=== PATIENT | male | born 1985 | race Caucasian/White ===

== ENCOUNTER 2018-05-18 04:09 | Inpatient (IN) | payer MEDICAID, OTHER ==
[2018-05-18] VITALS (11 sets, daily range): BP systolic 103–127; BP diastolic 59–77
[~2018-05-18] VITALS: Ht 180.3 cm; Wt 70.0 kg
[~2018-05-18 04:09] MED LIST: ATIVAN; CLONIDINE; HEPARIN; KEPPRA; LEVO500T2 PO
[2018-05-18] MEDS ORDERED: ACETAMINOPHEN 650MG SUPP ONE (05:31)
[2018-05-18] MEDS ORDERED: CEFTRIAXONE 1 G PREMIX 50 ML IV ONE (06:30)
[2018-05-18] MEDS ORDERED: AZITHROMYCIN 500 MG in DEXT 5% WATER 250 ML IV ONE (06:30)
[2018-05-18] MEDS ORDERED: SODIUM CHLORIDE 0.9% 1000ML BAG (SEPSIS BOLUS) IV ONE (06:30)
[2018-05-18 08:21] LABS: HEMATOCRIT. 45.5 % (42.0-52.0); HEMOGLOBIN. 15.5 g/dL (14.0-18.0); MEAN CORPUSCULAR HEMOGLOBIN 28.7 pg (28.0-32.0); MEAN CORPUSCULAR VOLUME 84.4 fL (80.0-94.0); PLATELET 235 x1000/uL (130-400); RED BLOOD CELL COUNT 5.39 mill/uL (4.7-6.1); RED CELL DISTRIBUTION WIDTH 13.7 % (11.6-14.6)
[2018-05-18 08:30] LABS: CHLORIDE 100 mEq/L (98-107)
[2018-05-18 08:32] LABS: INR 1.2; PROTHROMBIN TIME 12.3 sec (9.1-11.1)
[2018-05-18 08:33] LABS: CLARITY URINE CLOUDY (CLEAR); COLOR URINE DARK YELLOW (YELLOW); KETONES URINE TRACE (NEGATIVE); LEUKOCYTE ESTERASE URINE 2+ (NEGATIVE); NITRITE URINE POSITIVE (NEGATIVE); OCCULT BLOOD URINE 1+ (NEGATIVE); PH URINE >=9.0 (4.5-8.0); PROTEIN URINE 1+ (NEGATIVE); SPECIFIC GRAVITY URINE 1.023 (1.005-1.030)
[2018-05-18] MEDS ORDERED: ACETAMINOPHEN 650MG/20.3ML UDC GT ONE (09:15)
[2018-05-18 09:21] LABS: PLATELET ESTIMATE NORMAL
[2018-05-18] MEDS ORDERED: DIPHENHYDRAMINE 50MG/ML VIAL IV PRN (10:15)
[2018-05-18] MEDS ORDERED: MAGNESIUM/ALUMINUM HYDROXIDE/SIMETHICONE 30ML UDC PO PRN (10:15)
[2018-05-18] MEDS ORDERED: ACETAMINOPHEN 650MG SUPP PR PRN (10:15)
[2018-05-18] MEDS ORDERED: CLONIDINE 0.1MG TABLET PO PRN (10:15)
[2018-05-18] MEDS ORDERED: NA PHOS,M-B/NA PHOS,DI-BA ENEMA 118ML PR PRN (10:15)
[2018-05-18] MEDS ORDERED: IPRATROPIUM/ALBUTEROL 0.5-3(2.5)MG/3ML NEB INH PRN (10:15)
[2018-05-18] MEDS ORDERED: ONDANSETRON HCL 4MG/2ML INJ IV PRN (10:15)
[2018-05-18] MEDS: DEXT 5%/0.9% NACL 1,000 ML IV SCH ×2 (11:25→20:29)
[2018-05-18] MEDS: ENOXAPARIN 40MG/0.4ML SYR SUBCUT SCH (11:25)
[2018-05-18] MEDS: HYDROCODONE/ACETAMINOPHEN 5/325MG TABLET PO PRN (11:50)
[2018-05-18] MEDS ORDERED: SODIUM CHLORIDE 0.9% 500 ML IV SCH ×2 (12:15)
[2018-05-18] MEDS: PIPERACILLIN/TAZ 3.375G PREMIX 50 ML IV SCH ×2 (12:16→20:29)
[2018-05-18 13:10] LABS: BG BASE EXCESS -3.2 mmol/L (-2.0-2.0); BG DEOXYHEMOGLOBIN 1.5 % (0.0-5.0); BG FRACTION INSPIRED OXYGEN 40; BG HCO3 ACT 20.6 mmol/L (22.0-26.0); BG METHEMOGLOBIN 0.2 % (0.0-1.5); BG OXYGEN SATURATION 98.5 % (92.0-98.5); BG OXYHEMOGLOBIN 97.3 % (94.0-97.0); BG PCO2 33.2 mmHg (35.0-45.0); BG PO2 128.2 mmHg (75.0-100.0); BG SAMPLE SITE RIGHT RADIAL; BG TOTAL HEMOGLOBIN 13.6 g/dL (12.0-18.0); BG VENT MODE NASAL CANNULA
[2018-05-18] MEDS ORDERED: VANCOMYCIN 1,750 MG in DEXT 5% WATER 500 ML IV NR (14:00)
[2018-05-18] MEDS: IPRATROPIUM/ALBUTEROL 0.5-3(2.5)MG/3ML NEB INH SCH ×2 (15:58→20:11)
[2018-05-18] MEDS: ACETAMINOPHEN 325MG TABLET PO PRN (18:33)
[2018-05-18] MEDS: LEVETIRACETAM 500MG/5ML CUP PO SCH (21:00)
[2018-05-18] MEDS: VANCOMYCIN 1500MG in DEXTROSE 5% WATER 250ML IV SCH (21:52)
[2018-05-19] VITALS (15 sets, daily range): BP systolic 98–144; BP diastolic 46–103
[2018-05-19] MEDS: PIPERACILLIN/TAZ 3.375G PREMIX 50 ML IV SCH ×4 (01:21→20:58)
[2018-05-19] MEDS: IPRATROPIUM/ALBUTEROL 0.5-3(2.5)MG/3ML NEB INH SCH ×4 (01:36→20:19)
[2018-05-19] MEDS: ACETAMINOPHEN 325MG TABLET PO PRN ×2 (06:07→11:32)
[2018-05-19] MEDS: VANCOMYCIN 1500MG in DEXTROSE 5% WATER 250ML IV SCH ×3 (06:18→22:39)
[2018-05-19] MEDS: DEXT 5%/0.9% NACL 1,000 ML IV SCH ×2 (06:18→17:00)
[2018-05-19 06:44] LABS: BASOPHILS % 0.4 % (0.0-2.0); HEMATOCRIT. 38.8 % (42.0-52.0); HEMOGLOBIN. 13.3 g/dL (14.0-18.0); MEAN CORPUSCULAR HEMOGLOBIN 29.1 pg (28.0-32.0); MEAN CORPUSCULAR VOLUME 85.2 fL (80.0-94.0); MEAN PLATELET VOLUME 9.7 fl (7.4-10.4); MONOCYTES % 9.4 % (2.0-8.0); NEUTROPHILS % 73.2 % (40.0-76.0); PLATELET 166 x1000/uL (130-400); RED BLOOD CELL COUNT 4.56 mill/uL (4.7-6.1); RED CELL DISTRIBUTION WIDTH 13.6 % (11.6-14.6)
[2018-05-19 06:56] LABS: CHLORIDE 107 mEq/L (98-107)
[2018-05-19 07:07] LABS: HDL CHOLESTEROL 25 mg/dL (40-59)
[2018-05-19 07:08] LABS: LDL CHOLESTEROL 31 mg/dL (5-100)
[2018-05-19 07:10] LABS: T4 FREE 1.25 ng/dL (0.76-1.46)
[2018-05-19] MEDS: LEVETIRACETAM 500MG/5ML CUP PO SCH ×2 (08:55→20:57)
[2018-05-19] MEDS: ENOXAPARIN 40MG/0.4ML SYR SUBCUT SCH (08:55)
[2018-05-19] MEDS: HYDROCODONE/ACETAMINOPHEN 5/325MG TABLET PO PRN (11:11)
[2018-05-19] MEDS: METOPROLOL TARTRATE 25MG TABLET PO SCH ×2 (16:04→20:58)
[2018-05-20] VITALS (13 sets, daily range): BP systolic 119–145; BP diastolic 68–92
[2018-05-20] MEDS: IPRATROPIUM/ALBUTEROL 0.5-3(2.5)MG/3ML NEB INH SCH ×4 (00:50→20:18)
[2018-05-20] MEDS: DEXT 5%/0.9% NACL 1,000 ML IV SCH ×3 (03:00→22:27)
[2018-05-20 04:18] LABS: CHLORIDE 104 mEq/L (98-107)
[2018-05-20 04:26] LABS: VANCOMYCIN TROUGH 19.1 ug/mL (5.0-10.0)
[2018-05-20 04:56] LABS: BASOPHILS % 0.6 % (0.0-2.0); EOSINOPHILS % 0.1 % (0.0-5.0); HEMATOCRIT. 39.2 % (42.0-52.0); HEMOGLOBIN. 13.2 g/dL (14.0-18.0); LYMPHOCYTES % 20.1 % (20.0-50.0); MEAN CORPUSCULAR HEMOGLOBIN 28.5 pg (28.0-32.0); MEAN CORPUSCULAR VOLUME 84.6 fL (80.0-94.0); MEAN PLATELET VOLUME 9.7 fl (7.4-10.4); MONOCYTES % 12.7 % (2.0-8.0); NEUTROPHILS % 66.5 % (40.0-76.0); PLATELET 175 x1000/uL (130-400); RED BLOOD CELL COUNT 4.63 mill/uL (4.7-6.1); RED CELL DISTRIBUTION WIDTH 13.2 % (11.6-14.6)
[2018-05-20] MEDS: PIPERACILLIN/TAZ 3.375G PREMIX 50 ML IV SCH (06:53)
[2018-05-20] MEDS: VANCOMYCIN 1500MG in DEXTROSE 5% WATER 250ML IV SCH (06:54)
[2018-05-20] MEDS: METOPROLOL TARTRATE 25MG TABLET PO SCH ×2 (09:11→20:20)
[2018-05-20] MEDS: LEVETIRACETAM 500MG/5ML CUP PO SCH ×2 (09:11→20:20)
[2018-05-20] MEDS: ENOXAPARIN 40MG/0.4ML SYR SUBCUT SCH (09:12)
[2018-05-20] MEDS ORDERED: POTASSIUM CHLORIDE 20MEQ/PACKET PO SCH (11:00)
[2018-05-20] MEDS ORDERED: [UNRECOGNIZED DRUG - REMARK] XX SCH (13:15)
[2018-05-20] MEDS ORDERED: LEVOFLOXACIN 500MG PREMIX 100 ML IV ONE (13:15)
[2018-05-20] MEDS: LEVOFLOXACIN 750MG PREMIX 150 ML IV SCH (14:06)
[2018-05-20] MEDS ORDERED: VANCOMYCIN 1,750 MG in DEXT 5% WATER 500 ML IV SCH (15:00)
[2018-05-20 21:07] LABS: CLARITY URINE CLOUDY (CLEAR); COLOR URINE YELLOW (YELLOW); KETONES URINE NEGATIVE (NEGATIVE); LEUKOCYTE ESTERASE URINE 2+ (NEGATIVE); NITRITE URINE NEGATIVE (NEGATIVE); OCCULT BLOOD URINE 2+ (NEGATIVE); PH URINE >=9.0 (4.5-8.0); PROTEIN URINE NEGATIVE (NEGATIVE); SPECIFIC GRAVITY URINE 1.009 (1.005-1.030); UROBILINOGEN URINE 0.2 E.U./dL (0.2-1.0)
[2018-05-21] VITALS (12 sets, daily range): BP systolic 99–131; BP diastolic 58–93
[2018-05-21] MEDS: IPRATROPIUM/ALBUTEROL 0.5-3(2.5)MG/3ML NEB INH SCH ×3 (03:03→14:11)
[2018-05-21] MEDS: HYDROCODONE/ACETAMINOPHEN 5/325MG TABLET PO PRN (03:56)
[2018-05-21 07:04] LABS: MEAN CORPUSCULAR HEMOGLOBIN 28.9 pg (28.0-32.0); MEAN CORPUSCULAR VOLUME 84.1 fL (80.0-94.0); PLATELET 187 x1000/uL (130-400); RED BLOOD CELL COUNT 4.16 mill/uL (4.7-6.1); RED CELL DISTRIBUTION WIDTH 13.6 % (11.6-14.6)
[2018-05-21 07:59] LABS: CHLORIDE 108 mEq/L (98-107)
[2018-05-21] MEDS: ENOXAPARIN 40MG/0.4ML SYR SUBCUT SCH (08:48)
[2018-05-21] MEDS: LEVETIRACETAM 500MG/5ML CUP PO SCH (08:48)
[2018-05-21] MEDS: DEXT 5%/0.9% NACL 1,000 ML IV SCH (08:48)
[2018-05-21] MEDS: METOPROLOL TARTRATE 25MG TABLET PO SCH (08:50)
[2018-05-21] MEDS ORDERED: POTASSIUM CHLORIDE 20MEQ/PACKET PO NR (10:30)
[2018-05-21] MEDS ORDERED: POTASSIUM CHLORIDE INJ 40 MEQ in DEXT 5% WATER 250 ML IV NR (12:00)
[2018-05-21 15:19] LABS: BG BASE EXCESS 1.4 mmol/L (-2.0-2.0); BG DEOXYHEMOGLOBIN 3.1 % (0.0-5.0); BG FRACTION INSPIRED OXYGEN 21; BG HCO3 ACT 25.6 mmol/L (22.0-26.0); BG OXYGEN SATURATION 96.9 % (92.0-98.5); BG OXYHEMOGLOBIN 95.9 % (94.0-97.0); BG PCO2 38.7 mmHg (35.0-45.0); BG PH 7.438 (7.350-7.450); BG PO2 89.8 mmHg (75.0-100.0); BG SAMPLE SITE RIGHT BRACHIAL; BG TOTAL HEMOGLOBIN 12.4 g/dL (12.0-18.0); BG VENT MODE ROOM AIR
[2018-05-21] MEDS: LEVOFLOXACIN 750MG PREMIX 150 ML IV SCH (17:27)
== END 2018-05-21 19:00 | disposition home or self-care (01) | DRG 720 ==
LOC: ER 04:09 → EDBEDREQ 06:56 → ENRESERV 09:30 → 5EST 09:55
PROVIDERS: ADMIT Internal Medicine; ATTEND Internal Medicine
DX: A41.59 Other Gram-negative sepsis (principal); J69.0 Pneumonitis due to inhalation of food and vomit; G82.50 Quadriplegia, unspecified; G93.40 Encephalopathy, unspecified; J96.10 Chronic respiratory failure, unspecified whether with hypoxia or hypercapnia; R13.10 Dysphagia, unspecified; D68.59 Other primary thrombophilia; R47.01 Aphasia; E86.0 Dehydration; N39.0 Urinary tract infection, site not specified; E87.6 Hypokalemia; G40.909 Epilepsy, unspecified, not intractable, without status epilepticus; B96.4 Proteus (mirabilis) (morganii) as the cause of diseases classified elsewhere; Z87.820 Personal history of traumatic brain injury; Z93.1 Gastrostomy status; Z98.2 Presence of cerebrospinal fluid drainage device; Z79.899 Other long term (current) drug therapy
CPT/HCPCS: 36415; 36600; 71045; 80048; 80053; 80061; 80202; 81003; 82375; 82542; 82805; 83605; 84132; 84145; 84439; 84443; 85025; 85027; 85610; 87040; 87070; 87077; 87086; 87186; 93005; 93970; 94640; 96365; 96366; 96375; 99285; A6261; J0456; J0696; J1650; J1956; J2543; J3370; J3480; J7030; J7040; J7042; J7060; J7620

== ENCOUNTER 2020-08-21 18:22 | Inpatient (IN) | payer MEDICAID, OTHER ==
[~2020-08-21] VITALS: Ht 170.2 cm; Wt 69.9 kg
[~2020-08-21 18:22] MED LIST changes: -LEVO500T2 PO; +METR500T PO
[2020-08-21 21:52] LABS: BASOPHILS % 0.3 % (0.0-2.0); EOSINOPHILS % 0.1 % (0.0-5.0); HEMATOCRIT. 42.7 % (42.0-52.0); HEMOGLOBIN. 14.1 g/dL (14.0-18.0); LYMPHOCYTES % 11.2 % (20.0-50.0); MEAN CORPUSCULAR HEMOGLOBIN 28.2 pg (28.0-32.0); MEAN CORPUSCULAR VOLUME 85.2 fL (80.0-94.0); MEAN PLATELET VOLUME 10.1 fl (7.4-10.4); MONOCYTES % 11.5 % (2.0-8.0); NEUTROPHILS % 76.9 % (40.0-76.0); PLATELET 223 x1000/uL (130-400); RED BLOOD CELL COUNT 5.01 mill/uL (4.7-6.1); RED CELL DISTRIBUTION WIDTH 13.6 % (11.6-14.6)
[2020-08-21 21:57] LABS: CHLORIDE 100 mEq/L (98-107)
[2020-08-21 22:01] LABS: INR 1.1; PROTHROMBIN TIME 11.4 sec (9.6-11.0)
[2020-08-21 22:31] LABS: CLARITY URINE CLEAR (CLEAR); COLOR URINE DARK YELLOW (YELLOW); KETONES URINE TRACE (NEGATIVE); LEUKOCYTE ESTERASE URINE 2+ (NEGATIVE); NITRITE URINE NEGATIVE (NEGATIVE); OCCULT BLOOD URINE 1+ (NEGATIVE); PROTEIN URINE 2+ (NEGATIVE); SPECIFIC GRAVITY URINE 1.026 (1.005-1.030)
[2020-08-22] MEDS ORDERED: PIPERACILLIN/TAZOBACTAM 3.375GM/50ML PREMIX IV SCH
[2020-08-22] MEDS ORDERED: LACTATED RINGERS 1,000 ML IV SCH ×2 (03:15)
[2020-08-22] MEDS ORDERED: ACETAMINOPHEN 160MG/5ML UDC PO ONE (03:15)
[2020-08-22] MEDS ORDERED: IOHEXOL-350 100 ML BOTTLE ONE (07:18)
[2020-08-22] MEDS ORDERED: HYDROCODONE/ACETAMINOPHEN 5/325MG TABLET PO PRN (12:15)
[2020-08-22] MEDS ORDERED: ACETAMINOPHEN 650MG SUPP PR PRN (12:15)
[2020-08-22] MEDS ORDERED: MEROPENEM 1,000 MG in SODIUM CHLORIDE 0.9% 50 ML IV SCH (13:00)
[2020-08-22] MEDS: MEROPENEM 1,000 MG in SODIUM CHLORIDE 0.9% 100 ML IV SCH (14:01)
[2020-08-22] MEDS ORDERED: SODIUM CHLORIDE 0.9% 1,000 ML IV SCH (16:00)
[2020-08-22] MEDS ORDERED: SODIUM CHLORIDE 0.9% 500 ML IV ONE (16:00)
[2020-08-22] MEDS: DEXT 5%/0.9% NACL 1,000 ML IV SCH (16:15)
[2020-08-22 16:40] LABS: BASOPHILS % 0.5 % (0.0-2.0); EOSINOPHILS % 0.3 % (0.0-5.0); HEMATOCRIT. 37.2 % (42.0-52.0); HEMOGLOBIN. 12.3 g/dL (14.0-18.0); LYMPHOCYTES % 17.5 % (20.0-50.0); MEAN CORPUSCULAR HEMOGLOBIN 28.1 pg (28.0-32.0); MEAN CORPUSCULAR VOLUME 85.1 fL (80.0-94.0); MEAN PLATELET VOLUME 9.1 fl (7.4-10.4); MONOCYTES % 14.9 % (2.0-8.0); NEUTROPHILS % 66.8 % (40.0-76.0); PLATELET 211 x1000/uL (130-400); RED BLOOD CELL COUNT 4.37 mill/uL (4.7-6.1); RED CELL DISTRIBUTION WIDTH 13.1 % (11.6-14.6)
[2020-08-22] MEDS: FAMOTIDINE 20MG/2ML VIAL IV SCH (17:33)
[2020-08-22] MEDS ORDERED: LEVETIRACETAM 1,000 MG in SODIUM CHLORIDE 0.9% 100 ML IV SCH (18:00)
[2020-08-22 18:22] LABS: BG BASE EXCESS 0.6 mmol/L (-2.0-2.0); BG CARBOXYHEMOGLOBIN 0.1 % (0.5-1.5); BG DEOXYHEMOGLOBIN 21.7 % (0.0-5.0); BG FRACTION INSPIRED OXYGEN 75; BG HCO3 ACT 24.8 mmol/L (22.0-26.0); BG METHEMOGLOBIN 0.3 % (0.0-1.5); BG OXYGEN SATURATION 78.2 % (92.0-98.5); BG OXYHEMOGLOBIN 77.9 % (94.0-97.0); BG PCO2 37.9 mmHg (35.0-45.0); BG PEEP (cmH2O) 0 cmH2O; BG PH 7.433 (7.350-7.450); BG PO2 40.3 mmHg (75.0-100.0); BG SAMPLE SITE RIGHT RADIAL; BG TOTAL HEMOGLOBIN 11.5 g/dL (12.0-18.0); BG TOTAL RESPIRATORY RATE 29 b/min; BG VENT MODE VENT - AC
[2020-08-22] MEDS ORDERED: ENOXAPARIN 30MG/0.3ML SYR SUBCUT SCH (18:30)
[2020-08-22] MEDS: LEVETIRACETAM 1000MG PREMIX 100 ML IV SCH (18:32)
[2020-08-22] MEDS: IPRATROPIUM/ALBUTEROL 0.5-3(2.5)MG/3ML NEB HHN SCH (21:47)
[2020-08-23] VITALS (12 sets, daily range): BP systolic 125–159; BP diastolic 79–85
[2020-08-23] MEDS: MEROPENEM 1,000 MG in SODIUM CHLORIDE 0.9% 100 ML IV SCH ×4 (00:32→22:24)
[2020-08-23] MEDS: DEXT 5%/0.9% NACL 1,000 ML IV SCH ×4 (00:33→23:21)
[2020-08-23] MEDS ORDERED: DILTIAZEM HCL 5MG/ML 5ML VIAL IV SCH (02:30)
[2020-08-23 06:44] LABS: CHLORIDE 106 mEq/L (98-107)
[2020-08-23] MEDS: DILTIAZEM HCL 30MG TABLET GT SCH ×3 (06:58→18:00)
[2020-08-23] MEDS ORDERED: VANCOMYCIN 1,500 MG in SODIUM CHLORIDE 0.9% 250 ML IV SCH (07:00)
[2020-08-23 08:25] LABS: BG BASE EXCESS 0.9 mmol/L (-2.0-2.0); BG CARBOXYHEMOGLOBIN 0.3 % (0.5-1.5); BG DEOXYHEMOGLOBIN 0.5 % (0.0-5.0); BG HCO3 ACT 25.3 mmol/L (22.0-26.0); BG METHEMOGLOBIN 0.1 % (0.0-1.5); BG OXYGEN SATURATION 99.5 % (92.0-98.5); BG OXYHEMOGLOBIN 99.1 % (94.0-97.0); BG PCO2 39.7 mmHg (35.0-45.0); BG PH 7.422 (7.350-7.450); BG PO2 316.8 mmHg (75.0-100.0); BG SAMPLE SITE LEFT RADIAL; BG TOTAL HEMOGLOBIN 12.5 g/dL (12.0-18.0); BG VENT MODE VENT - AC
[2020-08-23] MEDS: FAMOTIDINE 20MG/2ML VIAL IV SCH (11:11)
[2020-08-23] MEDS: LEVETIRACETAM 1000MG PREMIX 100 ML IV SCH ×2 (11:11→22:00)
[2020-08-23] MEDS ORDERED: SODIUM BICARBONATE 4% (2.4MEQ) 5ML VIAL IV ONE (13:17)
[2020-08-23] MEDS ORDERED: LIDOCAINE HCL 1% 20ML VIAL (Pyxis) INJ ONE (13:17)
[2020-08-23] MEDS ORDERED: IOHEXOL-300 50 ML BOTTLE IV ONE (13:18)
[2020-08-23] MEDS ORDERED: FENTANYL CITRATE/PF 50MCG/ML 2ML VIAL ONE (13:20)
[2020-08-23] MEDS ORDERED: MIDAZOLAM HCL 2 MG/2 ML VIAL ONE (13:21)
[2020-08-23 15:27] LABS: BASOPHILS % 0.4 % (0.0-2.0); EOSINOPHILS % 0.7 % (0.0-5.0); HEMATOCRIT. 35.8 % (42.0-52.0); HEMOGLOBIN. 11.9 g/dL (14.0-18.0); LYMPHOCYTES % 17.8 % (20.0-50.0); MEAN CORPUSCULAR HEMOGLOBIN 28.3 pg (28.0-32.0); MEAN CORPUSCULAR VOLUME 85.1 fL (80.0-94.0); MEAN PLATELET VOLUME 8.8 fl (7.4-10.4); MONOCYTES % 13.9 % (2.0-8.0); NEUTROPHILS % 67.2 % (40.0-76.0); PLATELET 233 x1000/uL (130-400); RED BLOOD CELL COUNT 4.21 mill/uL (4.7-6.1); RED CELL DISTRIBUTION WIDTH 13.1 % (11.6-14.6)
[2020-08-23] MEDS ORDERED: FENTANYL CITRATE/PF 50MCG/ML 2ML VIAL IV ONE (15:30)
[2020-08-23 16:35] LABS: BG BASE EXCESS 0.7 mmol/L (-2.0-2.0); BG CARBOXYHEMOGLOBIN 0.3 % (0.5-1.5); BG DEOXYHEMOGLOBIN 0.5 % (0.0-5.0); BG FRACTION INSPIRED OXYGEN 75; BG HCO3 ACT 24.4 mmol/L (22.0-26.0); BG METHEMOGLOBIN 0.3 % (0.0-1.5); BG OXYGEN SATURATION 99.5 % (92.0-98.5); BG OXYHEMOGLOBIN 98.9 % (94.0-97.0); BG PCO2 36.2 mmHg (35.0-45.0); BG PH 7.447 (7.350-7.450); BG PO2 384.5 mmHg (75.0-100.0); BG SAMPLE SITE LEFT RADIAL; BG TOTAL HEMOGLOBIN 12.3 g/dL (12.0-18.0); BG TOTAL RESPIRATORY RATE 20 b/min; BG VENT MODE VENT - AC
[2020-08-23] MEDS: IPRATROPIUM/ALBUTEROL 0.5-3(2.5)MG/3ML NEB HHN SCH (20:50)
[2020-08-23] MEDS: ACETAMINOPHEN 325MG TABLET PO PRN (22:25)
[2020-08-24] MEDS: IPRATROPIUM/ALBUTEROL 0.5-3(2.5)MG/3ML NEB HHN SCH ×4 (03:00→20:51)
[2020-08-24] MEDS: ACETAMINOPHEN 325MG TABLET PO PRN (04:57)
[2020-08-24 05:30] LABS: BASOPHILS % 0.5 % (0.0-2.0); EOSINOPHILS % 1.3 % (0.0-5.0); HEMATOCRIT. 34.7 % (42.0-52.0); LYMPHOCYTES % 13.3 % (20.0-50.0); MEAN PLATELET VOLUME 8.9 fl (7.4-10.4); NEUTROPHILS % 75.9 % (40.0-76.0); PLATELET 230 x1000/uL (130-400); RED BLOOD CELL COUNT 4.13 mill/uL (4.7-6.1); RED CELL DISTRIBUTION WIDTH 13.2 % (11.6-14.6)
[2020-08-24 05:36] LABS: CHLORIDE 106 mEq/L (98-107)
[2020-08-24] MEDS: DILTIAZEM HCL 30MG TABLET GT SCH ×4 (06:00→18:00)
[2020-08-24] MEDS: MEROPENEM 1,000 MG in SODIUM CHLORIDE 0.9% 100 ML IV SCH (06:14)
[2020-08-24] MEDS: DEXT 5%/0.9% NACL 1,000 ML IV SCH ×3 (08:15→23:55)
[2020-08-24] MEDS: LEVETIRACETAM 1000MG PREMIX 100 ML IV SCH (09:00)
[2020-08-24] MEDS ORDERED: ENOXAPARIN 40MG/0.4ML SYR SUBCUT SCH (09:00)
[2020-08-24] MEDS: FAMOTIDINE 20MG/2ML VIAL IV SCH (09:00)
[2020-08-24] MEDS ORDERED: SODIUM BICARBONATE 4% (2.4MEQ) 5ML VIAL IV ONE (12:29)
[2020-08-24] MEDS ORDERED: LIDOCAINE HCL 1% 20ML VIAL (Pyxis) INJ ONE (12:29)
[2020-08-24] MEDS ORDERED: MEROPENEM-0.9% SODIUM CHLORIDE 50 ML IV SCH (15:00)
[2020-08-24] MEDS ORDERED: MEROPENEM 1,000 MG in SODIUM CHLORIDE 0.9% 100 ML IV SCH (15:00)
[2020-08-24] MEDS ORDERED: PIPERACILLIN/TAZOBACTAM 3.375 G in DEXT 5% WATER 100 ML IV SCH (16:00)
[2020-08-24] MEDS: AMPICILLIN 1,000 MG in SODIUM CHLORIDE 0.9% 50 ML IV SCH ×2 (16:00→23:55)
[2020-08-24] MEDS ORDERED: GENTAMICIN 120MG PREMIX 100 ML IV SCH (17:00)
[2020-08-24 21:52] LABS: HEMOGLOBIN 11.2 g/dL (14.0-18.0)
[2020-08-25] MEDS: DILTIAZEM HCL 30MG TABLET GT SCH ×4 (00:30→17:52)
[2020-08-25] MEDS: LEVETIRACETAM 1000MG PREMIX 100 ML IV SCH (00:30)
[2020-08-25] MEDS: IPRATROPIUM/ALBUTEROL 0.5-3(2.5)MG/3ML NEB HHN SCH ×4 (03:49→20:37)
[2020-08-25] MEDS: GENTAMICIN 80MG PREMIX 100 ML IV SCH ×2 (04:00→15:00)
[2020-08-25] MEDS: AMPICILLIN 1,000 MG in SODIUM CHLORIDE 0.9% 50 ML IV SCH ×3 (06:20→17:52)
[2020-08-25] MEDS: DEXT 5%/0.9% NACL 1,000 ML IV SCH ×2 (08:15→21:03)
[2020-08-25] MEDS: FAMOTIDINE 20MG/2ML VIAL IV SCH (09:00)
[2020-08-25] MEDS: LEVETIRACETAM 1,000 MG in SODIUM CHLORIDE 0.9% 100 ML IV SCH ×2 (09:00→21:03)
[2020-08-25 15:18] LABS: BASOPHILS % 1.1 % (0.0-2.0); EOSINOPHILS % 3.1 % (0.0-5.0); HEMATOCRIT. 30.9 % (42.0-52.0); HEMOGLOBIN. 10.3 g/dL (14.0-18.0); LYMPHOCYTES % 28.4 % (20.0-50.0); MEAN CORPUSCULAR HEMOGLOBIN 28.2 pg (28.0-32.0); MEAN PLATELET VOLUME 8.4 fl (7.4-10.4); MONOCYTES % 10.2 % (2.0-8.0); NEUTROPHILS % 57.2 % (40.0-76.0); PLATELET 324 x1000/uL (130-400); RED BLOOD CELL COUNT 3.64 mill/uL (4.7-6.1); RED CELL DISTRIBUTION WIDTH 13.2 % (11.6-14.6)
[2020-08-25 15:25] LABS: CHLORIDE 111 mEq/L (98-107)
[2020-08-25] MEDS ORDERED: POTASSIUM CHLORIDE 20MEQ TABLET SR PO NR (16:30)
[2020-08-25] MEDS: ACETAMINOPHEN 325MG TABLET PO PRN (17:53)
[2020-08-26] VITALS (13 sets, daily range): BP systolic 101–160; BP diastolic 56–96
[2020-08-26] MEDS ORDERED: AMPICILLIN 1,000 MG in SODIUM CHLORIDE 0.9% 50 ML IV SCH ×2
[2020-08-26] MEDS ORDERED: GENTAMICIN 80MG PREMIX 100 ML IV SCH (03:00)
[2020-08-26] MEDS: IPRATROPIUM/ALBUTEROL 0.5-3(2.5)MG/3ML NEB HHN SCH ×4 (04:21→21:30)
[2020-08-26] MEDS: DILTIAZEM HCL 30MG TABLET GT SCH ×5 (06:00→17:33)
[2020-08-26 06:17] LABS: HEMATOCRIT 34.2 % (42.0-52.0); HEMOGLOBIN 11.7 g/dL (14.0-18.0); MEAN CORPUSCULAR HEMOGLOBIN 28.9 pg (28.0-32.0); MEAN CORPUSCULAR VOLUME 84.7 fL (80.0-94.0); PLATELET 327 x1000/uL (130-400); RED BLOOD CELL COUNT 4.04 mill/uL (4.7-6.1); RED CELL DISTRIBUTION WIDTH 13.2 % (11.6-14.6)
[2020-08-26] MEDS: FAMOTIDINE 20MG/2ML VIAL IV SCH (08:28)
[2020-08-26] MEDS: GENTAMICIN 80MG PREMIX 100 ML IV SCH ×2 (08:44→21:37)
[2020-08-26] MEDS: DEXT 5%/0.9% NACL 1,000 ML IV SCH ×2 (08:48→21:42)
[2020-08-26 08:55] LABS: CHLORIDE 108 mEq/L (98-107)
[2020-08-26] MEDS ORDERED: POTASSIUM CHLORIDE 20MEQ/PACKET PO NR (11:00)
[2020-08-26 11:14] LABS: BG BASE EXCESS 2.1 mmol/L (-2.0-2.0); BG CARBOXYHEMOGLOBIN 0.1 % (0.5-1.5); BG DEOXYHEMOGLOBIN 0.9 % (0.0-5.0); BG FRACTION INSPIRED OXYGEN 50; BG OXYGEN SATURATION 99.1 % (92.0-98.5); BG PCO2 38.3 mmHg (35.0-45.0); BG PO2 185.1 mmHg (75.0-100.0); BG TOTAL HEMOGLOBIN 12.1 g/dL (12.0-18.0); BG VENT MODE VENT - CPAP
[2020-08-26] MEDS ORDERED: LEVETIRACETAM 1000MG PREMIX 100 ML IV NR (14:00)
[2020-08-26] MEDS ORDERED: LORAZEPAM 2MG/ML CPJ IV NR (14:04)
[2020-08-26] MEDS: LORAZEPAM 2MG/ML CPJ IV PRN (14:05)
[2020-08-26] MEDS: AMPICILLIN 1,000 MG in SODIUM CHLORIDE 0.9% 50 ML IV SCH ×3 (14:30→21:58)
[2020-08-26] MEDS ORDERED: DILTIAZEM HCL 5MG/ML 5ML VIAL IV PRN (14:45)
[2020-08-26] MEDS: MORPHINE SULFATE 2 MG/ML CPJ (NOT FOR IM USE) IV PRN (14:48)
[2020-08-26] MEDS ORDERED: DILTIAZEM HCL 5MG/ML 5ML VIAL IV ONE (15:45)
[2020-08-26] MEDS ORDERED: DILTIAZEM HCL 5MG/ML 5ML VIAL IV SCH (16:00)
[2020-08-26] MEDS ORDERED: POTASSIUM CHLORIDE 20MEQ TABLET SR PO NR (16:45)
[2020-08-26] MEDS: DILTIAZEM HCL 125 MG in DEXT 5% WATER 100 ML IV SCH (17:42)
[2020-08-26] MEDS: ENOXAPARIN 60MG/0.6ML SYR SUBCUT SCH (18:29)
[2020-08-26] MEDS ORDERED: METOPROLOL TARTRATE 25MG TABLET PO SCH (21:00)
[2020-08-26] MEDS ORDERED: LEVETIRACETAM 1000MG PREMIX 100 ML IV SCH (21:00)
[2020-08-26] MEDS: LEVETIRACETAM 1,000 MG in SODIUM CHLORIDE 0.9% 100 ML IV SCH (21:36)
[2020-08-27] VITALS (12 sets, daily range): BP systolic 103–142; BP diastolic 67–94
[2020-08-27] MEDS: LORAZEPAM 2MG/ML CPJ IV PRN (00:57)
[2020-08-27] MEDS: ACETAMINOPHEN 325MG TABLET PO PRN (00:57)
[2020-08-27] MEDS: DILTIAZEM HCL 30MG TABLET GT SCH ×2 (00:57→05:50)
[2020-08-27] MEDS: DILTIAZEM HCL 125 MG in DEXT 5% WATER 100 ML IV SCH ×3 (01:18→18:24)
[2020-08-27] MEDS: AMPICILLIN 1,000 MG in SODIUM CHLORIDE 0.9% 50 ML IV SCH ×4 (01:50→20:46)
[2020-08-27] MEDS: DEXT 5%/0.9% NACL 1,000 ML IV SCH ×3 (04:29→23:32)
[2020-08-27] MEDS: ENOXAPARIN 60MG/0.6ML SYR SUBCUT SCH (05:51)
[2020-08-27 07:20] LABS: BASOPHILS % 0.8 % (0.0-2.0); EOSINOPHILS % 2.9 % (0.0-5.0); HEMATOCRIT. 33.7 % (42.0-52.0); HEMOGLOBIN. 11.3 g/dL (14.0-18.0); LYMPHOCYTES % 32.7 % (20.0-50.0); MEAN CORPUSCULAR HEMOGLOBIN 28.6 pg (28.0-32.0); MEAN CORPUSCULAR VOLUME 85.3 fL (80.0-94.0); MEAN PLATELET VOLUME 8.8 fl (7.4-10.4); MONOCYTES % 10.1 % (2.0-8.0); NEUTROPHILS % 53.5 % (40.0-76.0); PLATELET 372 x1000/uL (130-400); RED BLOOD CELL COUNT 3.95 mill/uL (4.7-6.1); RED CELL DISTRIBUTION WIDTH 13.1 % (11.6-14.6)
[2020-08-27 07:42] LABS: CHLORIDE 108 mEq/L (98-107)
[2020-08-27 08:03] LABS: GENTAMICIN RANDOM 0.8 ug/mL
[2020-08-27] MEDS: IPRATROPIUM/ALBUTEROL 0.5-3(2.5)MG/3ML NEB HHN SCH ×3 (08:04→21:16)
[2020-08-27] MEDS: LEVETIRACETAM 1,000 MG in SODIUM CHLORIDE 0.9% 100 ML IV SCH ×2 (09:31→21:52)
[2020-08-27] MEDS: FAMOTIDINE 20MG/2ML VIAL IV SCH (09:31)
[2020-08-27] MEDS: GENTAMICIN 80MG PREMIX 100 ML IV SCH ×2 (09:31→20:47)
[2020-08-27] MEDS ORDERED: POTASSIUM CHLORIDE INJ 40 MEQ in DEXT 5% WATER 250 ML IV ONE (10:00)
[2020-08-27] MEDS: ENOXAPARIN 80MG/0.8ML SYR SUBCUT SCH (20:48)
[2020-08-27] MEDS: METOPROLOL TARTRATE 25MG TABLET PO SCH (20:54)
[2020-08-28] VITALS (12 sets, daily range): BP systolic 117–165; BP diastolic 61–114
[2020-08-28] MEDS: ONDANSETRON HCL 4MG/2ML INJ IV PRN
[2020-08-28] MEDS: MORPHINE SULFATE 2 MG/ML CPJ (NOT FOR IM USE) IV PRN ×3 (00:01→16:40)
[2020-08-28] MEDS: AMPICILLIN 1,000 MG in SODIUM CHLORIDE 0.9% 50 ML IV SCH ×4 (02:48→20:25)
[2020-08-28] MEDS: IPRATROPIUM/ALBUTEROL 0.5-3(2.5)MG/3ML NEB HHN SCH ×3 (03:16→16:15)
[2020-08-28] MEDS: DILTIAZEM HCL 125 MG in DEXT 5% WATER 100 ML IV SCH ×2 (06:54→20:04)
[2020-08-28] MEDS: LEVETIRACETAM 1,000 MG in SODIUM CHLORIDE 0.9% 100 ML IV SCH ×2 (08:37→23:43)
[2020-08-28] MEDS: GENTAMICIN 80MG PREMIX 100 ML IV SCH ×2 (08:37→20:25)
[2020-08-28] MEDS: FAMOTIDINE 20MG/2ML VIAL IV SCH (08:38)
[2020-08-28] MEDS: ENOXAPARIN 80MG/0.8ML SYR SUBCUT SCH ×2 (08:38→20:49)
[2020-08-28] MEDS: METOPROLOL TARTRATE 25MG TABLET PO SCH ×2 (08:38→08:43)
[2020-08-28] MEDS: DEXT 5%/0.9% NACL 1,000 ML IV SCH ×2 (08:47→23:47)
[2020-08-28] MEDS: METOPROLOL TARTRATE 50MG TABLET PO SCH ×2 (09:00→20:27)
[2020-08-28 09:42] LABS: BASOPHILS % 0.7 % (0.0-2.0); EOSINOPHILS % 3.1 % (0.0-5.0); HEMATOCRIT. 40.6 % (42.0-52.0); HEMOGLOBIN. 13.5 g/dL (14.0-18.0); LYMPHOCYTES % 28.3 % (20.0-50.0); MEAN CORPUSCULAR HEMOGLOBIN 28.4 pg (28.0-32.0); MEAN CORPUSCULAR VOLUME 84.9 fL (80.0-94.0); MEAN PLATELET VOLUME 8.4 fl (7.4-10.4); MONOCYTES % 8.7 % (2.0-8.0); NEUTROPHILS % 59.2 % (40.0-76.0); PLATELET 477 x1000/uL (130-400); RED BLOOD CELL COUNT 4.77 mill/uL (4.7-6.1)
[2020-08-28 09:56] LABS: CHLORIDE 106 mEq/L (98-107)
[2020-08-28] MEDS ORDERED: METOPROLOL TARTRATE 5MG/5ML VIAL IV SCH (12:00)
[2020-08-28] MEDS ORDERED: POTASSIUM CHLORIDE INJ 40 MEQ in DEXT 5% WATER 250 ML IV SCH (13:00)
[2020-08-28] MEDS ORDERED: METOPROLOL TARTRATE 5MG/5ML VIAL IV NR (17:08)
[2020-08-28] MEDS: LORAZEPAM 2MG/ML CPJ IV PRN (20:34)
[2020-08-29] VITALS (17 sets, daily range): BP systolic 86–155; BP diastolic 51–98
[2020-08-29] MEDS: AMPICILLIN 1,000 MG in SODIUM CHLORIDE 0.9% 50 ML IV SCH ×4 (01:57→21:39)
[2020-08-29] MEDS: LORAZEPAM 2MG/ML CPJ IV PRN ×2 (02:15→05:54)
[2020-08-29] MEDS: IPRATROPIUM/ALBUTEROL 0.5-3(2.5)MG/3ML NEB HHN SCH ×4 (02:20→22:05)
[2020-08-29] MEDS: MORPHINE SULFATE 2 MG/ML CPJ (NOT FOR IM USE) IV PRN (04:33)
[2020-08-29] MEDS: ONDANSETRON HCL 4MG/2ML INJ IV PRN (05:51)
[2020-08-29 06:54] LABS: CHLORIDE 107 mEq/L (98-107)
[2020-08-29 07:00] LABS: BASOPHILS % 0.6 % (0.0-2.0); EOSINOPHILS % 1.8 % (0.0-5.0); HEMATOCRIT. 40.3 % (42.0-52.0); HEMOGLOBIN. 13.2 g/dL (14.0-18.0); INR 1.3; LYMPHOCYTES % 34.4 % (20.0-50.0); MEAN CORPUSCULAR HEMOGLOBIN 28.4 pg (28.0-32.0); MEAN CORPUSCULAR VOLUME 86.5 fL (80.0-94.0); MEAN PLATELET VOLUME 8.6 fl (7.4-10.4); MONOCYTES % 8.3 % (2.0-8.0); NEUTROPHILS % 54.9 % (40.0-76.0); PLATELET 722 x1000/uL (130-400); PROTHROMBIN TIME 13.2 sec (9.6-11.0); RED BLOOD CELL COUNT 4.66 mill/uL (4.7-6.1); RED CELL DISTRIBUTION WIDTH 13.5 % (11.6-14.6)
[2020-08-29] MEDS: ENOXAPARIN 80MG/0.8ML SYR SUBCUT SCH (08:25)
[2020-08-29] MEDS: DILTIAZEM HCL 125 MG in DEXT 5% WATER 100 ML IV SCH (08:25)
[2020-08-29] MEDS: METOPROLOL TARTRATE 50MG TABLET PO SCH (08:26)
[2020-08-29] MEDS: FAMOTIDINE 20MG/2ML VIAL IV SCH (08:26)
[2020-08-29] MEDS: LEVETIRACETAM 1,000 MG in SODIUM CHLORIDE 0.9% 100 ML IV SCH ×2 (10:21→21:39)
[2020-08-29] MEDS: GENTAMICIN 80MG PREMIX 100 ML IV SCH ×2 (10:23→23:07)
[2020-08-29] MEDS: DEXT 5%/0.9% NACL 1,000 ML IV SCH (13:45)
[2020-08-29] MEDS: DILTIAZEM HCL 30MG TABLET PO SCH ×2 (14:19→18:00)
[2020-08-29] MEDS ORDERED: HYDROCODONE/ACETAMINOPHEN 5/325MG TABLET PO PRN (15:00)
[2020-08-29] MEDS ORDERED: LACTULOSE 20G/30ML UDC PO PRN (15:00)
[2020-08-29 15:17] LABS: HEMATOCRIT 36.9 % (42.0-52.0); MEAN CORPUSCULAR HEMOGLOBIN 27.9 pg (28.0-32.0); PLATELET 510 x1000/uL (130-400); RED BLOOD CELL COUNT 4.29 mill/uL (4.7-6.1); RED CELL DISTRIBUTION WIDTH 13.2 % (11.6-14.6)
[2020-08-29] MEDS ORDERED: DILTIAZEM HCL 30MG TABLET PO SCH (18:00)
[2020-08-29] MEDS ORDERED: DIGOXIN 500MCG/2ML AMP IV NR (19:57)
[2020-08-29] MEDS: METOPROLOL TARTRATE 100MG TABLET PO SCH (21:00)
[2020-08-30] VITALS (11 sets, daily range): BP systolic 103–140; BP diastolic 46–98
[2020-08-30] MEDS: DILTIAZEM HCL 30MG TABLET PO SCH ×4 (00:17→17:21)
[2020-08-30] MEDS: DEXT 5%/0.9% NACL 1,000 ML IV SCH ×2 (01:21→11:48)
[2020-08-30] MEDS: LORAZEPAM 2MG/ML CPJ IV PRN ×3 (02:57→13:47)
[2020-08-30] MEDS: IPRATROPIUM/ALBUTEROL 0.5-3(2.5)MG/3ML NEB HHN SCH ×3 (03:10→20:40)
[2020-08-30] MEDS: AMPICILLIN 1,000 MG in SODIUM CHLORIDE 0.9% 50 ML IV SCH ×4 (03:29→20:14)
[2020-08-30 07:25] LABS: BASOPHILS % 0.3 % (0.0-2.0); HEMATOCRIT. 30.6 % (42.0-52.0); HEMOGLOBIN. 9.1 g/dL (14.0-18.0); LYMPHOCYTES % 18.7 % (20.0-50.0); MEAN CORPUSCULAR HEMOGLOBIN 28.4 pg (28.0-32.0); MEAN CORPUSCULAR VOLUME 95.2 fL (80.0-94.0); MONOCYTES % 6.8 % (2.0-8.0); NEUTROPHILS % 73.2 % (40.0-76.0); PLATELET 385 x1000/uL (130-400); RED BLOOD CELL COUNT 3.21 mill/uL (4.7-6.1); RED CELL DISTRIBUTION WIDTH 14.5 % (11.6-14.6)
[2020-08-30] MEDS: METOPROLOL TARTRATE 100MG TABLET PO SCH ×2 (09:00→21:19)
[2020-08-30] MEDS: GENTAMICIN 80MG PREMIX 100 ML IV SCH ×2 (09:27→21:00)
[2020-08-30] MEDS: FAMOTIDINE 20MG/2ML VIAL IV SCH (09:27)
[2020-08-30] MEDS: LEVETIRACETAM 1,000 MG in SODIUM CHLORIDE 0.9% 100 ML IV SCH ×2 (10:47→21:01)
[2020-08-30] MEDS ORDERED: DIATR MEGLU/DIATRIZOATE SOLN 30ML GT SCH (11:00)
[2020-08-30] MEDS ORDERED: DILTIAZEM HCL 125 MG in DEXT 5% WATER 100 ML IV PRN ×2 (11:15→12:00)
[2020-08-30] MEDS ORDERED: DIATR MEGLU/DIATRIZOATE SOLN 30ML ONE (11:59)
[2020-08-30 12:12] LABS: CHLORIDE 110 mEq/L (98-107)
[2020-08-30 12:40] LABS: BG BASE EXCESS 5.1 mmol/L (-2.0-2.0); BG CARBOXYHEMOGLOBIN 0.2 % (0.5-1.5); BG DEOXYHEMOGLOBIN 5.9 % (0.0-5.0); BG HCO3 ACT 28.5 mmol/L (22.0-26.0); BG METHEMOGLOBIN 0.3 % (0.0-1.5); BG OXYGEN SATURATION 94.1 % (92.0-98.5); BG OXYHEMOGLOBIN 93.6 % (94.0-97.0); BG PCO2 37.7 mmHg (35.0-45.0); BG PH 7.497 (7.350-7.450); BG PO2 67.3 mmHg (75.0-100.0); BG SAMPLE SITE LEFT RADIAL; BG TOTAL HEMOGLOBIN 11.9 g/dL (12.0-18.0); BG VENT MODE VENT - AC
[2020-08-30 13:23] LABS: HEMATOCRIT 36.3 % (42.0-52.0); HEMOGLOBIN 11.7 g/dL (14.0-18.0)
[2020-08-30] MEDS: CLONIDINE 0.1MG TABLET PO SCH ×2 (13:47→22:00)
[2020-08-30 13:54] LABS: CHLORIDE 112 mEq/L (98-107)
[2020-08-30] MEDS ORDERED: POTASSIUM CHLORIDE INJ 40 MEQ in DEXT 5% WATER 250 ML IV SCH (15:00)
[2020-08-30] MEDS: ACETYLCYSTEINE 100MG/ML 10% VIAL 4ML INH SCH ×2 (15:35→20:40)
[2020-08-30] MEDS: METHYLPREDNISOLONE SOD SUCC 40 MG/ML VIAL IV SCH (17:21)
[2020-08-30] MEDS ORDERED: POTASSIUM CHLORIDE 20MEQ TABLET SR PO SCH (18:00)
[2020-08-30 18:07] LABS: BG BASE EXCESS 5.2 mmol/L (-2.0-2.0); BG CARBOXYHEMOGLOBIN 0.6 % (0.5-1.5); BG DEOXYHEMOGLOBIN 1.5 % (0.0-5.0); BG HCO3 ACT 29.6 mmol/L (22.0-26.0); BG METHEMOGLOBIN 0.1 % (0.0-1.5); BG OXYGEN SATURATION 98.5 % (92.0-98.5); BG OXYHEMOGLOBIN 97.8 % (94.0-97.0); BG PCO2 42.8 mmHg (35.0-45.0); BG PH 7.458 (7.350-7.450); BG PO2 116.8 mmHg (75.0-100.0); BG SAMPLE SITE LEFT RADIAL; BG TOTAL HEMOGLOBIN 12.7 g/dL (12.0-18.0); BG VENT MODE VENT - AC
[2020-08-30] MEDS: CEFEPIME 1,000 MG in DEXTROSE 5% WATER 50 ML IV SCH (18:47)
[2020-08-31] VITALS (12 sets, daily range): BP systolic 104–126; BP diastolic 67–88
[2020-08-31] MEDS: DILTIAZEM HCL 30MG TABLET PO SCH ×3 (03:05→18:25)
[2020-08-31] MEDS: DEXT 5%/0.9% NACL 1,000 ML IV SCH ×3 (03:46→18:21)
[2020-08-31] MEDS: IPRATROPIUM/ALBUTEROL 0.5-3(2.5)MG/3ML NEB HHN SCH ×4 (04:05→20:26)
[2020-08-31] MEDS: METHYLPREDNISOLONE SOD SUCC 40 MG/ML VIAL IV SCH ×2 (04:55→18:20)
[2020-08-31] MEDS: AMPICILLIN 1,000 MG in SODIUM CHLORIDE 0.9% 50 ML IV SCH ×4 (06:05→20:25)
[2020-08-31] MEDS: CEFEPIME 1,000 MG in DEXTROSE 5% WATER 50 ML IV SCH ×2 (06:09→18:21)
[2020-08-31 06:56] LABS: BASOPHILS % 0.1 % (0.0-2.0); HEMATOCRIT. 33.2 % (42.0-52.0); LYMPHOCYTES % 14.3 % (20.0-50.0); MEAN CORPUSCULAR HEMOGLOBIN 28.6 pg (28.0-32.0); MEAN CORPUSCULAR VOLUME 86.2 fL (80.0-94.0); MEAN PLATELET VOLUME 9.6 fl (7.4-10.4); MONOCYTES % 2.1 % (2.0-8.0); NEUTROPHILS % 83.5 % (40.0-76.0); PLATELET 466 x1000/uL (130-400); RED BLOOD CELL COUNT 3.86 mill/uL (4.7-6.1); RED CELL DISTRIBUTION WIDTH 13.4 % (11.6-14.6)
[2020-08-31 07:08] LABS: CHLORIDE 111 mEq/L (98-107)
[2020-08-31 07:28] LABS: GENTAMICIN RANDOM 0.5 ug/mL
[2020-08-31] MEDS: ACETYLCYSTEINE 100MG/ML 10% VIAL 4ML INH SCH ×2 (09:27→14:07)
[2020-08-31] MEDS: LEVETIRACETAM 1,000 MG in SODIUM CHLORIDE 0.9% 100 ML IV SCH ×2 (09:35→22:32)
[2020-08-31] MEDS: FAMOTIDINE 20MG/2ML VIAL IV SCH (09:35)
[2020-08-31] MEDS: METOPROLOL TARTRATE 100MG TABLET PO SCH ×2 (09:36→21:26)
[2020-08-31] MEDS: GENTAMICIN 80MG PREMIX 100 ML IV SCH ×2 (09:36→20:25)
[2020-08-31 10:28] LABS: BG BASE EXCESS 2.3 mmol/L (-2.0-2.0); BG CARBOXYHEMOGLOBIN 0.3 % (0.5-1.5); BG DEOXYHEMOGLOBIN 1.2 % (0.0-5.0); BG FRACTION INSPIRED OXYGEN 90; BG HCO3 ACT 25.9 mmol/L (22.0-26.0); BG OXYGEN SATURATION 98.8 % (92.0-98.5); BG OXYHEMOGLOBIN 98.5 % (94.0-97.0); BG PCO2 36.5 mmHg (35.0-45.0); BG PH 7.469 (7.350-7.450); BG PO2 151.5 mmHg (75.0-100.0); BG SAMPLE SITE LEFT RADIAL; BG TOTAL HEMOGLOBIN 10.9 g/dL (12.0-18.0); BG VENT MODE VENT - AC
[2020-08-31] MEDS: CLONIDINE 0.1MG TABLET PO SCH ×2 (14:40→21:27)
[2020-09-01] VITALS (12 sets, daily range): BP systolic 120–140; BP diastolic 77–95
[2020-09-01] MEDS: DILTIAZEM HCL 30MG TABLET PO SCH ×4 (00:22→17:54)
[2020-09-01] MEDS: AMPICILLIN 1,000 MG in SODIUM CHLORIDE 0.9% 50 ML IV SCH ×4 (01:42→20:06)
[2020-09-01] MEDS: IPRATROPIUM/ALBUTEROL 0.5-3(2.5)MG/3ML NEB HHN SCH ×3 (03:00→21:34)
[2020-09-01] MEDS: ACETYLCYSTEINE 100MG/ML 10% VIAL 4ML INH SCH ×3 (03:00→21:34)
[2020-09-01] MEDS: CLONIDINE 0.1MG TABLET PO SCH ×3 (05:32→23:01)
[2020-09-01] MEDS: METHYLPREDNISOLONE SOD SUCC 40 MG/ML VIAL IV SCH ×2 (05:33→16:28)
[2020-09-01] MEDS: CEFEPIME 1,000 MG in DEXTROSE 5% WATER 50 ML IV SCH ×2 (05:59→17:54)
[2020-09-01] MEDS: DEXT 5%/0.9% NACL 1,000 ML IV SCH ×2 (06:02→23:01)
[2020-09-01 07:45] LABS: HEMATOCRIT 31.6 % (42.0-52.0); HEMOGLOBIN 10.6 g/dL (14.0-18.0); MEAN CORPUSCULAR HEMOGLOBIN 28.5 pg (28.0-32.0); MEAN CORPUSCULAR VOLUME 85.1 fL (80.0-94.0); PLATELET 440 x1000/uL (130-400); RED BLOOD CELL COUNT 3.71 mill/uL (4.7-6.1)
[2020-09-01 07:59] LABS: CHLORIDE 110 mEq/L (98-107)
[2020-09-01] MEDS: FAMOTIDINE 20MG/2ML VIAL IV SCH (08:48)
[2020-09-01] MEDS: METOPROLOL TARTRATE 100MG TABLET PO SCH ×2 (08:49→20:51)
[2020-09-01] MEDS: LEVETIRACETAM 1,000 MG in SODIUM CHLORIDE 0.9% 100 ML IV SCH (08:57)
[2020-09-01] MEDS: GENTAMICIN 80MG PREMIX 100 ML IV SCH ×2 (09:38→20:07)
[2020-09-01 10:45] LABS: BG CARBOXYHEMOGLOBIN 0.3 % (0.5-1.5); BG FRACTION INSPIRED OXYGEN 70; BG HCO3 ACT 21.7 mmol/L (22.0-26.0); BG METHEMOGLOBIN 0.3 % (0.0-1.5); BG OXYHEMOGLOBIN 98.4 % (94.0-97.0); BG PCO2 33.5 mmHg (35.0-45.0); BG PH 7.429 (7.350-7.450); BG PO2 172.7 mmHg (75.0-100.0); BG SAMPLE SITE LEFT RADIAL; BG TOTAL HEMOGLOBIN 11.7 g/dL (12.0-18.0); BG VENT MODE VENT - AC
[2020-09-01] MEDS ORDERED: POTASSIUM CHLORIDE INJ 40 MEQ in DEXT 5% WATER 250 ML IV NR (11:00)
[2020-09-01] MEDS: LEVETIRACETAM 1000MG PREMIX 100 ML IV SCH (22:56)
[2020-09-01] MEDS: DILTIAZEM HCL 60MG TABLET PO SCH (23:16)
[2020-09-02] VITALS (13 sets, daily range): BP systolic 101–141; BP diastolic 57–88
[2020-09-02] MEDS: AMPICILLIN 1,000 MG in SODIUM CHLORIDE 0.9% 50 ML IV SCH ×4 (01:36→20:20)
[2020-09-02] MEDS: LORAZEPAM 2MG/ML CPJ IV PRN ×3 (01:59→12:49)
[2020-09-02] MEDS: IPRATROPIUM/ALBUTEROL 0.5-3(2.5)MG/3ML NEB HHN SCH ×4 (03:36→21:05)
[2020-09-02] MEDS: METHYLPREDNISOLONE SOD SUCC 40 MG/ML VIAL IV SCH ×2 (04:40→17:50)
[2020-09-02] MEDS: DILTIAZEM HCL 60MG TABLET PO SCH ×3 (04:48→18:00)
[2020-09-02] MEDS: CEFEPIME 1,000 MG in DEXTROSE 5% WATER 50 ML IV SCH ×2 (04:54→17:50)
[2020-09-02] MEDS: CLONIDINE 0.1MG TABLET PO SCH ×3 (06:00→23:50)
[2020-09-02 06:45] LABS: BASOPHILS % 0.1 % (0.0-2.0); HEMATOCRIT. 31.3 % (42.0-52.0); HEMOGLOBIN. 10.4 g/dL (14.0-18.0); MEAN CORPUSCULAR HEMOGLOBIN 28.3 pg (28.0-32.0); MEAN PLATELET VOLUME 9.4 fl (7.4-10.4); MONOCYTES % 9.2 % (2.0-8.0); NEUTROPHILS % 78.7 % (40.0-76.0); PLATELET 406 x1000/uL (130-400); RED BLOOD CELL COUNT 3.68 mill/uL (4.7-6.1); RED CELL DISTRIBUTION WIDTH 12.8 % (11.6-14.6)
[2020-09-02 07:22] LABS: CHLORIDE 106 mEq/L (98-107)
[2020-09-02] MEDS: FAMOTIDINE 20MG/2ML VIAL IV SCH (08:13)
[2020-09-02] MEDS ORDERED: POTASSIUM CHLORIDE 20MEQ TABLET SR PO NR (08:14)
[2020-09-02] MEDS: METOPROLOL TARTRATE 100MG TABLET PO SCH ×2 (08:15→21:43)
[2020-09-02] MEDS: GENTAMICIN 80MG PREMIX 100 ML IV SCH ×2 (08:16→20:22)
[2020-09-02] MEDS: LEVETIRACETAM 1000MG PREMIX 100 ML IV SCH ×2 (08:17→20:21)
[2020-09-02] MEDS: DEXT 5%/0.9% NACL 1,000 ML IV SCH ×2 (09:39→10:13)
[2020-09-02 10:01] LABS: BG BASE EXCESS 1.6 mmol/L (-2.0-2.0); BG CARBOXYHEMOGLOBIN 0.3 % (0.5-1.5); BG DEOXYHEMOGLOBIN 0.7 % (0.0-5.0); BG HCO3 ACT 25.4 mmol/L (22.0-26.0); BG METHEMOGLOBIN 0.2 % (0.0-1.5); BG OXYGEN SATURATION 99.3 % (92.0-98.5); BG OXYHEMOGLOBIN 98.8 % (94.0-97.0); BG PCO2 36.6 mmHg (35.0-45.0); BG PH 7.459 (7.350-7.450); BG PO2 245.4 mmHg (75.0-100.0); BG SAMPLE SITE LEFT RADIAL; BG TOTAL HEMOGLOBIN 10.5 g/dL (12.0-18.0); BG VENT MODE VENT - AC
[2020-09-02] MEDS ORDERED: LIDOCAINE HCL 1% 20ML VIAL (Pyxis) INJ ONE (12:53)
[2020-09-02] MEDS ORDERED: SODIUM BICARBONATE 4% (2.4MEQ) 5ML VIAL IV ONE (12:53)
[2020-09-02] MEDS: ACETYLCYSTEINE 100MG/ML 10% VIAL 4ML INH SCH ×2 (14:00→21:05)
[2020-09-03] VITALS (11 sets, daily range): BP systolic 104–131; BP diastolic 58–85
[2020-09-03] MEDS: DILTIAZEM HCL 60MG TABLET PO SCH ×4 (02:57→17:18)
[2020-09-03] MEDS: AMPICILLIN 1,000 MG in SODIUM CHLORIDE 0.9% 50 ML IV SCH ×3 (02:57→13:56)
[2020-09-03] MEDS: IPRATROPIUM/ALBUTEROL 0.5-3(2.5)MG/3ML NEB HHN SCH ×3 (04:58→15:18)
[2020-09-03] MEDS: DEXT 5%/0.9% NACL 1,000 ML IV SCH ×2 (05:39→17:40)
[2020-09-03] MEDS: CEFEPIME 1,000 MG in DEXTROSE 5% WATER 50 ML IV SCH ×2 (05:49→17:18)
[2020-09-03] MEDS: CLONIDINE 0.1MG TABLET PO SCH ×2 (05:49→13:55)
[2020-09-03] MEDS: METHYLPREDNISOLONE SOD SUCC 40 MG/ML VIAL IV SCH (05:49)
[2020-09-03] MEDS: METOPROLOL TARTRATE 100MG TABLET PO SCH (08:11)
[2020-09-03] MEDS: FAMOTIDINE 20MG/2ML VIAL IV SCH (08:11)
[2020-09-03] MEDS: ACETYLCYSTEINE 100MG/ML 10% VIAL 4ML INH SCH ×2 (08:14→15:18)
[2020-09-03 08:27] LABS: HEMATOCRIT. 33.8 % (42.0-52.0); HEMOGLOBIN. 10.9 g/dL (14.0-18.0); MEAN CORPUSCULAR HEMOGLOBIN 27.7 pg (28.0-32.0); MEAN CORPUSCULAR VOLUME 85.7 fL (80.0-94.0); MEAN PLATELET VOLUME 10.1 fl (7.4-10.4); PLATELET 425 x1000/uL (130-400); RED BLOOD CELL COUNT 3.94 mill/uL (4.7-6.1); RED CELL DISTRIBUTION WIDTH 13.3 % (11.6-14.6)
[2020-09-03] MEDS: GENTAMICIN 80MG PREMIX 100 ML IV SCH (08:41)
[2020-09-03] MEDS: LEVETIRACETAM 1000MG PREMIX 100 ML IV SCH (08:51)
[2020-09-03 09:32] LABS: CHLORIDE 106 mEq/L (98-107)
[2020-09-03] MEDS ORDERED: POTASSIUM CHLORIDE 20MEQ/PACKET PO NR (10:30)
[2020-09-03 12:36] LABS: BG BASE EXCESS -0.6 mmol/L (-2.0-2.0); BG FRACTION INSPIRED OXYGEN 40; BG HCO3 ACT 23.3 mmol/L (22.0-26.0); BG METHEMOGLOBIN 0.1 % (0.0-1.5); BG OXYHEMOGLOBIN 96.9 % (94.0-97.0); BG PCO2 35.9 mmHg (35.0-45.0); BG PO2 102.2 mmHg (75.0-100.0); BG SAMPLE SITE RIGHT RADIAL; BG TOTAL HEMOGLOBIN 13.4 g/dL (12.0-18.0); BG VENT MODE VENT - AC
[2020-09-03 16:25] LABS: PLATELET ESTIMATE INCREASED
[2020-09-03] MEDS ORDERED: SULFAMETHOXAZOLE/TRIMETHOPRIM 800/160MG TABLET PO SCH (21:00)
[2020-09-04] MEDS ORDERED: METHYLPREDNISOLONE SOD SUCC 40 MG/ML VIAL IV SCH (09:00)
== END 2020-09-03 21:03 | DRG 720 ==
LOC: ER 18:32 → MICUSO 08-22 00:23 → EDBEDREQTM 08-22 00:37 → EDBEDREQ 08-22 00:37 → EDBEDREQSVC 08-22 00:37 → EDBEDREQDT 08-22 00:37 → 7EST 08-23 08:52 → MICUSO 08-23 10:08 → EDBEDREQSVC 08-23 18:18 → 5EST 08-24 23:30 → MICUSO 08-25 08:21 → 5EST 08-25 21:28
PROVIDERS: ADMIT Internal Medicine; ATTEND Internal Medicine
PROC: 5A1955Z Respiratory Ventilation, Greater than 96 Consecutive Hours (ICD-10-PCS; principal; 2020-08-22)
PROC: 0T9430Z Drainage of Left Kidney Pelvis with Drainage Device, Percutaneous Approach (ICD-10-PCS; 2020-08-23)
PROC: 0D20XUZ Change Feeding Device in Upper Intestinal Tract, External Approach (ICD-10-PCS; 2020-08-30)
PROC: 05HY33Z Insertion of Infusion Device into Upper Vein, Percutaneous Approach (ICD-10-PCS; 2020-09-02)
PROC: B54MZZA Ultrasonography of Right Upper Extremity Veins, Guidance (ICD-10-PCS; 2020-09-02)
DX: A41.81 Sepsis due to Enterococcus (principal); R65.21 Severe sepsis with septic shock; G93.40 Encephalopathy, unspecified; N20.2 Calculus of kidney with calculus of ureter; D68.59 Other primary thrombophilia; D72.810 Lymphocytopenia; E86.0 Dehydration; E87.1 Hypo-osmolality and hyponatremia; G40.909 Epilepsy, unspecified, not intractable, without status epilepticus; K56.41 Fecal impaction; N13.6 Pyonephrosis; E46 Unspecified protein-calorie malnutrition; R74.01 Elevation of levels of liver transaminase levels; Z20.822 Contact with and (suspected) exposure to COVID-19; G91.9 Hydrocephalus, unspecified; G82.50 Quadriplegia, unspecified; E87.6 Hypokalemia; I48.92 Unspecified atrial flutter; K94.23 Gastrostomy malfunction; Y83.8 Other surgical procedures as the cause of abnormal reaction of the patient, or of later complication, without mention of misadventure at the time of the procedure; Y82.8 Other medical devices associated with adverse incidents; R13.12 Dysphagia, oropharyngeal phase; J98.19 Other pulmonary collapse; J96.21 Acute and chronic respiratory failure with hypoxia; S06.9X0A Unspecified intracranial injury without loss of consciousness, initial encounter; N18.9 Chronic kidney disease, unspecified; X58.XXXA Exposure to other specified factors, initial encounter; Z87.442 Personal history of urinary calculi; Z87.820 Personal history of traumatic brain injury; Z98.2 Presence of cerebrospinal fluid drainage device; Z88.1 Allergy status to other antibiotic agents; Z79.899 Other long term (current) drug therapy; Y93.89 Activity, other specified; Y92.89 Other specified places as the place of occurrence of the external cause; Y99.8 Other external cause status; Z68.24 Body mass index [BMI] 24.0-24.9, adult; J18.9 Pneumonia, unspecified organism; R00.0 Tachycardia, unspecified
CPT/HCPCS: 36415; 36600; 50432; 71045; 71275; 74018; 74176; 74178; 76937; 80048; 80053; 80061; 80076; 80170; 81003; 82375; 82805; 83605; 83735; 83880; 84145; 84484; 85014; 85018; 85025; 85027; 86850; 86900; 87070; 87077; 87186; 87426; 87635; 93005; 93306; 94003; 94640; 96365; 96366; 96367; 96375; 99285; C1725; C1729; C1769; C1893; J0290; J0692; J1160; J1580; J1644; J1650; J1953; J2060; J2185; J2250; J2270; J2405; J2543; J2920; J3010; J3370; J3480; J3490; J7040; J7042; J7050; J7060; J7608; Q9963; Q9967; A4315

== ENCOUNTER 2020-10-26 01:17 | Inpatient (IN) | payer OTHER ==
[2020-10-26] VITALS (44 sets, daily range): BP systolic 98–159; BP diastolic 21–100
[~2020-10-26] VITALS: Ht 172.7 cm; Wt 63.0 kg
[2020-10-26] MEDS ORDERED: ACETAMINOPHEN 650MG SUPP PR STA (01:35)
[2020-10-26] MEDS ORDERED: ONDANSETRON HCL 4MG/2ML INJ IV STA (01:35)
[2020-10-26] MEDS ORDERED: LEVOFLOXACIN 750MG PREMIX 150 ML IV ONE (01:45)
[2020-10-26] MEDS ORDERED: SODIUM CHLORIDE 0.9% 1000ML BAG (SEPSIS BOLUS) IV ONE (01:45)
[2020-10-26] MEDS ORDERED: PIPERACILLIN/TAZ 3.375G PREMIX 50 ML IV ONE (01:45)
[2020-10-26 02:10] LABS: HEMATOCRIT. 32.8 % (42.0-52.0); HEMOGLOBIN. 11.1 g/dL (14.0-18.0); MEAN CORPUSCULAR HEMOGLOBIN 27.6 pg (28.0-32.0); MEAN CORPUSCULAR VOLUME 81.8 fL (80.0-94.0); PLATELET 302 x1000/uL (130-400); RED BLOOD CELL COUNT 4.01 mill/uL (4.7-6.1); RED CELL DISTRIBUTION WIDTH 14.4 % (11.6-14.6)
[2020-10-26 02:17] LABS: CHLORIDE 98 mEq/L (98-107)
[2020-10-26 02:21] LABS: D-DIMER 4.35 mg/L FEU (<0.50); INR 1.3; PROTHROMBIN TIME 13.4 sec (9.6-11.0)
[2020-10-26 02:27] LABS: BG BASE EXCESS -1.9 mmol/L (-2.0-2.0); BG CARBOXYHEMOGLOBIN 0.5 % (0.5-1.5); BG DEOXYHEMOGLOBIN 2.8 % (0.0-5.0); BG FRACTION INSPIRED OXYGEN 21; BG HCO3 ACT 20.4 mmol/L (22.0-26.0); BG METHEMOGLOBIN 0.3 % (0.0-1.5); BG OXYGEN SATURATION 97.2 % (92.0-98.5); BG OXYHEMOGLOBIN 96.4 % (94.0-97.0); BG PCO2 27.1 mmHg (35.0-45.0); BG PH 7.494 (7.350-7.450); BG PO2 87.6 mmHg (75.0-100.0); BG SAMPLE SITE LEFT RADIAL; BG TOTAL HEMOGLOBIN 11.2 g/dL (12.0-18.0); BG VENT MODE ROOM AIR
[2020-10-26 02:46] LABS: PLATELET ESTIMATE NORMAL
[2020-10-26] MEDS ORDERED: IBUPROFEN 100MG/5ML UDC GT ONE (04:15)
[2020-10-26] MEDS ORDERED: SODIUM CHLORIDE 0.9% 1,000 ML IV ONE (05:15)
[2020-10-26 05:43] LABS: CLARITY URINE CLEAR (CLEAR); COLOR URINE YELLOW (YELLOW); KETONES URINE NEGATIVE (NEGATIVE); LEUKOCYTE ESTERASE URINE 2+ (NEGATIVE); NITRITE URINE NEGATIVE (NEGATIVE); OCCULT BLOOD URINE 2+ (NEGATIVE); PH URINE 6.5 (4.5-8.0); PROTEIN URINE 1+ (NEGATIVE); SPECIFIC GRAVITY URINE 1.021 (1.005-1.030)
[2020-10-26] MEDS ORDERED: BACL-141 PO (11:31)
[2020-10-26] MEDS ORDERED: FAMO-135 MT (11:31)
[2020-10-26] MEDS ORDERED: ASPI-1497 PO (11:31)
[2020-10-26] MEDS ORDERED: METO10TA3 PO (11:31)
[2020-10-26] MEDS ORDERED: ONDANSETRON HCL 4MG/2ML INJ IV PRN (11:45)
[2020-10-26] MEDS ORDERED: LORAZEPAM 2MG/ML CPJ IV PRN (11:45)
[2020-10-26] MEDS ORDERED: DIGOXIN 500MCG/2ML AMP IV NR (11:45)
[2020-10-26] MEDS ORDERED: GUAIFENESIN 200MG/10ML SUGAR FREE UDC PO PRN (11:45)
[2020-10-26] MEDS ORDERED: MORPHINE SULFATE 2 MG/ML CPJ (NOT FOR IM USE) IV PRN (11:45)
[2020-10-26] MEDS ORDERED: MAGNESIUM/ALUMINUM HYDROXIDE/SIMETHICONE 30ML UDC PO PRN (11:45)
[2020-10-26] MEDS ORDERED: ACETAMINOPHEN 650MG SUPP PR PRN (11:45)
[2020-10-26] MEDS ORDERED: ACETAMINOPHEN 325MG TABLET PO PRN (11:45)
[2020-10-26] MEDS ORDERED: CLONIDINE 0.1MG TABLET PO PRN (11:45)
[2020-10-26] MEDS ORDERED: NA PHOS,M-B/NA PHOS,DI-BA ENEMA 118ML PR PRN (11:45)
[2020-10-26] MEDS ORDERED: HYDROCODONE/ACETAMINOPHEN 5/325MG TABLET PO PRN (11:45)
[2020-10-26] MEDS ORDERED: DIPHENHYDRAMINE 50MG/ML VIAL IV PRN (11:45)
[2020-10-26] MEDS ORDERED: DOCUSATE SODIUM 100MG CAPSULE PO PRN (11:45)
[2020-10-26] MEDS ORDERED: METOCLOPRAMIDE HCL 10MG TABLET PO SCH (13:00)
[2020-10-26] MEDS: SODIUM CHLORIDE 0.9% 1,000 ML IV SCH ×3 (13:58→23:00)
[2020-10-26] MEDS: METHYLPREDNISOLONE SOD SUCC 40 MG/ML VIAL IV SCH (13:59)
[2020-10-26] MEDS: FAMOTIDINE 20MG/2ML VIAL IV SCH (13:59)
[2020-10-26] MEDS: MEROPENEM 1,000 MG in SODIUM CHLORIDE 0.9% 100 ML IV SCH ×2 (13:59→21:12)
[2020-10-26 17:12] LABS: CREATINE KINASE 179 IU/L (39-308)
[2020-10-26 17:13] LABS: CREATINE KINASE MB FRACTION 1.1 ng/mL (0.5-3.6)
[2020-10-26] MEDS: METOCLOPRAMIDE HCL 10MG/2ML VIAL IV SCH (17:52)
[2020-10-26] MEDS: LEVETIRACETAM 500MG TABLET PO SCH (21:12)
[2020-10-26 23:27] LABS: CREATINE KINASE 125 IU/L (39-308)
[2020-10-27] VITALS (62 sets, daily range): BP systolic 98–150; BP diastolic 47–110
[2020-10-27] MEDS: METHYLPREDNISOLONE SOD SUCC 40 MG/ML VIAL IV SCH ×3 (00:28→23:46)
[2020-10-27] MEDS: METOCLOPRAMIDE HCL 10MG/2ML VIAL IV SCH ×3 (04:03→18:05)
[2020-10-27 05:00] LABS: BASOPHILS % 0.1 % (0.0-2.0); HEMATOCRIT. 24.6 % (42.0-52.0); LYMPHOCYTES % 8.7 % (20.0-50.0); MEAN CORPUSCULAR HEMOGLOBIN 27.1 pg (28.0-32.0); MEAN CORPUSCULAR VOLUME 82.8 fL (80.0-94.0); MEAN PLATELET VOLUME 9.6 fl (7.4-10.4); MONOCYTES % 4.2 % (2.0-8.0); PLATELET 245 x1000/uL (130-400); RED BLOOD CELL COUNT 2.97 mill/uL (4.7-6.1); RED CELL DISTRIBUTION WIDTH 14.5 % (11.6-14.6)
[2020-10-27 05:36] LABS: CHLORIDE 114 mEq/L (98-107)
[2020-10-27 05:44] LABS: LDL CHOLESTEROL 31 mg/dL (5-100)
[2020-10-27 05:46] LABS: HDL CHOLESTEROL 13 mg/dL (40-59); T4 FREE 1.45 ng/dL (0.76-1.46)
[2020-10-27] MEDS: MEROPENEM 1,000 MG in SODIUM CHLORIDE 0.9% 100 ML IV SCH ×3 (06:01→21:39)
[2020-10-27 07:00] LABS: CLARITY URINE TURBID (CLEAR); COLOR URINE YELLOW (YELLOW); KETONES URINE NEGATIVE (NEGATIVE); LEUKOCYTE ESTERASE URINE 3+ (NEGATIVE); NITRITE URINE NEGATIVE (NEGATIVE); OCCULT BLOOD URINE 3+ (NEGATIVE); PH URINE 7.5 (4.5-8.0); PROTEIN URINE 2+ (NEGATIVE); SPECIFIC GRAVITY URINE 1.011 (1.005-1.030)
[2020-10-27] MEDS: LEVETIRACETAM 500MG TABLET PO SCH ×2 (08:19→21:39)
[2020-10-27] MEDS: SODIUM CHLORIDE 0.9% 1,000 ML IV SCH ×3 (08:19→20:39)
[2020-10-27] MEDS: FAMOTIDINE 20MG/2ML VIAL IV SCH (08:19)
[2020-10-27] MEDS ORDERED: METOPROLOL TARTRATE 25MG TABLET PO NR ×2 (12:30→16:57)
[2020-10-27] MEDS ORDERED: IPRATROPIUM/ALBUTEROL 0.5-3(2.5)MG/3ML NEB HHN SCH (18:00)
[2020-10-27 18:34] LABS: BG CARBOXYHEMOGLOBIN 0.3 % (0.5-1.5); BG DEOXYHEMOGLOBIN 8.7 % (0.0-5.0); BG FRACTION INSPIRED OXYGEN 35; BG HCO3 ACT 24.1 mmol/L (22.0-26.0); BG METHEMOGLOBIN 0.1 % (0.0-1.5); BG OXYGEN SATURATION 91.3 % (92.0-98.5); BG OXYHEMOGLOBIN 90.9 % (94.0-97.0); BG PCO2 37.3 mmHg (35.0-45.0); BG PH 7.429 (7.350-7.450); BG PO2 61.3 mmHg (75.0-100.0); BG SAMPLE SITE RIGHT RADIAL; BG TOTAL HEMOGLOBIN 10.6 g/dL (12.0-18.0); BG VENT MODE T PIECE
[2020-10-27] MEDS ORDERED: METOPROLOL TARTRATE 25MG TABLET PO SCH (21:00)
[2020-10-28] VITALS: BP 118/84
[2020-10-28 00:29] VITALS: BP 119/81
[2020-10-28 00:30] VITALS: BP 119/81
== END 2020-10-28 00:45 | disposition short-term general hospital (02) | DRG 720 ==
LOC: ER 01:17 → MICUSO 03:19 → EDBEDREQTM 03:45 → EDBEDREQ 03:45 → ENRESERV 07:34 → MICUSO 12:04
PROVIDERS: ADMIT Internal Medicine; ATTEND Internal Medicine
DX: A41.50 Gram-negative sepsis, unspecified (principal); D64.9 Anemia, unspecified; E86.0 Dehydration; E87.2 Acidosis; G40.909 Epilepsy, unspecified, not intractable, without status epilepticus; G82.50 Quadriplegia, unspecified; G93.40 Encephalopathy, unspecified; N13.6 Pyonephrosis; J96.10 Chronic respiratory failure, unspecified whether with hypoxia or hypercapnia; R13.10 Dysphagia, unspecified; Z20.822 Contact with and (suspected) exposure to COVID-19; Z87.820 Personal history of traumatic brain injury; Z93.0 Tracheostomy status; Z93.1 Gastrostomy status; Z93.6 Other artificial openings of urinary tract status; Z98.2 Presence of cerebrospinal fluid drainage device; Z88.1 Allergy status to other antibiotic agents; Z79.82 Long term (current) use of aspirin; Z79.899 Other long term (current) drug therapy; R00.0 Tachycardia, unspecified
CPT/HCPCS: 36415; 36600; 71045; 74176; 80053; 80061; 81003; 82375; 82550; 82553; 82805; 83605; 84145; 84439; 84443; 84484; 85025; 85379; 87077; 87186; 93005; 93970; 94640; 99291; J1160; J1956; J2185; J2405; J2543; J2765; J2920; J3490; J7030; J7040; J7050; J8597; U0003

== ENCOUNTER 2021-07-23 23:59 | Inpatient (IN) | payer OTHER ==
[~2021-07-23] VITALS: Ht 162.6 cm; Wt 64.0 kg
[~2021-07-23 23:59] MED LIST changes: +ASPI-1497 PO; +BACL-141 PO; +FAMO-135 MT; +METO10TA3 PO
[2021-07-24] MEDS ORDERED: ACETAMINOPHEN 325MG TABLET GT STA (00:34)
[2021-07-24] MEDS ORDERED: SODIUM CHLORIDE 0.9% 1,000 ML IV ONE ×2 (00:45→15:00)
[2021-07-24 01:12] LABS: HEMATOCRIT. 46.7 % (42.0-52.0); HEMOGLOBIN. 15.3 g/dL (14.0-18.0); MEAN CORPUSCULAR HEMOGLOBIN 28.2 pg (28.0-32.0); MEAN CORPUSCULAR VOLUME 85.9 fL (80.0-94.0); PLATELET 184 x1000/uL (130-400); RED BLOOD CELL COUNT 5.44 mill/uL (4.7-6.1); RED CELL DISTRIBUTION WIDTH 13.5 % (11.6-14.6)
[2021-07-24 01:26] LABS: CHLORIDE 102 mEq/L (98-107)
[2021-07-24] MEDS ORDERED: AZITHROMYCIN 500MG/250ML 250 ML IV SCH (02:00)
[2021-07-24] MEDS ORDERED: CEFTRIAXONE 1 G PREMIX 50 ML IV SCH (02:00)
[2021-07-24 02:52] LABS: CLARITY URINE CLEAR (CLEAR); COLOR URINE YELLOW (YELLOW); KETONES URINE NEGATIVE (NEGATIVE); LEUKOCYTE ESTERASE URINE 3+ (NEGATIVE); NITRITE URINE POSITIVE (NEGATIVE); OCCULT BLOOD URINE 2+ (NEGATIVE); PH URINE 8.5 (4.5-8.0); PROTEIN URINE TRACE (NEGATIVE); SPECIFIC GRAVITY URINE 1.012 (1.005-1.030)
[2021-07-24 05:25] LABS: PLATELET ESTIMATE NORMAL
[2021-07-24] MEDS: ACETAMINOPHEN 325MG TABLET PO PRN (08:16)
[2021-07-24 09:30] VITALS: BP 104/78
[2021-07-24] MEDS ORDERED: ACETAMINOPHEN 650MG SUPP PR PRN (10:45)
[2021-07-24] MEDS ORDERED: IPRATROPIUM/ALBUTEROL 0.5-3(2.5)MG/3ML NEB NEB PRN (10:45)
[2021-07-24] MEDS ORDERED: LORAZEPAM 0.5MG TABLET PO PRN (10:45)
[2021-07-24] MEDS ORDERED: MAGNESIUM/ALUMINUM HYDROXIDE/SIMETHICONE 30ML UDC PO PRN (10:45)
[2021-07-24] MEDS ORDERED: DIPHENHYDRAMINE 50MG/ML VIAL IV PRN (10:45)
[2021-07-24] MEDS ORDERED: GUAIFENESIN 200MG/10ML SUGAR FREE UDC PO PRN (10:45)
[2021-07-24] MEDS ORDERED: ONDANSETRON HCL 4MG/2ML INJ IV PRN (10:45)
[2021-07-24] MEDS ORDERED: HYDROCODONE/ACETAMINOPHEN 5/325MG TABLET PO PRN (10:45)
[2021-07-24] MEDS ORDERED: CLONIDINE 0.1MG TABLET PO PRN (10:45)
[2021-07-24] MEDS ORDERED: DOCUSATE SODIUM 100MG CAPSULE PO PRN (10:45)
[2021-07-24] MEDS ORDERED: ACETAMINOPHEN 650MG/20.3ML UDC GT PRN (10:45)
[2021-07-24] MEDS ORDERED: NA PHOS,M-B/NA PHOS,DI-BA ENEMA 118ML PR PRN (10:45)
[2021-07-24] MEDS ORDERED: NALOXONE HCL 0.4MG/ML VIAL IV PRN (11:00)
[2021-07-24 11:35] VITALS: BP 104/78
[2021-07-24 12:00] VITALS: BP 112/79
[2021-07-24 12:21] LABS: INR 1.2; PROTHROMBIN TIME 13.1 sec (9.6-11.0)
[2021-07-24] MEDS: ENOXAPARIN 40MG/0.4ML SYR SUBCUT SCH (12:21)
[2021-07-24] MEDS: METOCLOPRAMIDE HCL 10MG TABLET PO SCH ×2 (12:22→19:16)
[2021-07-24] MEDS: FAMOTIDINE 20MG/2ML VIAL IV SCH ×2 (12:22→22:07)
[2021-07-24] MEDS: METHYLPREDNISOLONE SOD SUCC 40 MG/ML VIAL IV SCH ×2 (12:22→19:16)
[2021-07-24 12:26] LABS: BG BASE EXCESS -2.2 mmol/L (-2.0-2.0); BG CARBOXYHEMOGLOBIN 1.2 % (0.5-1.5); BG FRACTION INSPIRED OXYGEN 21; BG HCO3 ACT 20.7 mmol/L (22.0-26.0); BG METHEMOGLOBIN 0.3 % (0.0-1.5); BG OXYGEN SATURATION 93.9 % (92.0-98.5); BG OXYHEMOGLOBIN 92.5 % (94.0-97.0); BG PCO2 30.8 mmHg (35.0-45.0); BG PH 7.445 (7.350-7.450); BG PO2 65.4 mmHg (75.0-100.0); BG TOTAL HEMOGLOBIN 14.6 g/dL (12.0-18.0); BG VENT MODE ROOM AIR
[2021-07-24] MEDS: LEVETIRACETAM 500MG PREMIX 100 ML IV SCH ×2 (13:49→23:09)
[2021-07-24] MEDS: PIPERACILLIN/TAZOBACTAM 3.375 G in DEXTROSE 5% WATER 50 ML IV SCH ×2 (14:59→22:07)
[2021-07-24] MEDS: DEXT 5%/0.45% NACL 1000ML 1,000 ML IV SCH (15:06)
[2021-07-24 16:00] VITALS: BP 94/59
[2021-07-24 20:00] VITALS: BP 101/70
[2021-07-24] MEDS: IPRATROPIUM/ALBUTEROL 0.5-3(2.5)MG/3ML NEB NEB SCH (21:22)
[2021-07-24] MEDS: MEROPENEM 500 MG in SODIUM CHLORIDE 0.9% 50 ML IV SCH (23:09)
[2021-07-24] MEDS ORDERED: KEPPSOL MT (23:25)
[2021-07-24] MEDS ORDERED: CLON0.1T PO (23:26)
[2021-07-25 00:29] VITALS: BP 104/71
[2021-07-25] MEDS: DEXT 5%/0.45% NACL 1000ML 1,000 ML IV SCH ×3 (00:45→22:20)
[2021-07-25] MEDS: METHYLPREDNISOLONE SOD SUCC 40 MG/ML VIAL IV SCH ×2 (03:12→10:13)
[2021-07-25 04:00] VITALS: BP 109/77
[2021-07-25] MEDS: MEROPENEM 500 MG in SODIUM CHLORIDE 0.9% 50 ML IV SCH ×3 (05:36→22:18)
[2021-07-25 06:59] LABS: CHLORIDE 110 mEq/L (98-107)
[2021-07-25 07:16] LABS: LDL CHOLESTEROL 35 mg/dL (5-100)
[2021-07-25 07:18] LABS: HDL CHOLESTEROL 31 mg/dL (40-59)
[2021-07-25 07:20] LABS: T4 FREE 1.06 ng/dL (0.76-1.46)
[2021-07-25 07:58] LABS: HEMATOCRIT. 34.5 % (42.0-52.0); HEMOGLOBIN. 11.8 g/dL (14.0-18.0); MEAN CORPUSCULAR HEMOGLOBIN 28.5 pg (28.0-32.0); MEAN CORPUSCULAR VOLUME 83.4 fL (80.0-94.0); MEAN PLATELET VOLUME 10.1 fl (7.4-10.4); PLATELET 190 x1000/uL (130-400); RED BLOOD CELL COUNT 4.13 mill/uL (4.7-6.1); RED CELL DISTRIBUTION WIDTH 13.3 % (11.6-14.6)
[2021-07-25 08:00] VITALS: BP 112/76
[2021-07-25] MEDS: IPRATROPIUM/ALBUTEROL 0.5-3(2.5)MG/3ML NEB NEB SCH ×3 (08:51→21:28)
[2021-07-25] MEDS: ENOXAPARIN 40MG/0.4ML SYR SUBCUT SCH (09:16)
[2021-07-25] MEDS: FAMOTIDINE 20MG/2ML VIAL IV SCH ×2 (09:16→22:18)
[2021-07-25] MEDS: METOCLOPRAMIDE HCL 10MG TABLET PO SCH ×3 (09:16→17:40)
[2021-07-25] MEDS: LEVETIRACETAM 500MG PREMIX 100 ML IV SCH ×2 (09:16→22:18)
[2021-07-25] MEDS ORDERED: METHYLPREDNISOLONE SOD SUCC 40 MG/ML VIAL IV SCH (11:00)
[2021-07-25] MEDS ORDERED: SODIUM CHLORIDE 0.9% 500 ML IV ONE (11:30)
[2021-07-25 12:00] VITALS: BP 137/80
[2021-07-25 16:00] VITALS: BP 108/63
[2021-07-25] MEDS: ACETAMINOPHEN 325MG TABLET PO PRN (17:40)
[2021-07-25 20:00] VITALS: BP 106/61
[2021-07-25 20:04] LABS: PLATELET ESTIMATE NORMAL
[2021-07-26] VITALS: BP 112/74
[2021-07-26] MEDS: IPRATROPIUM/ALBUTEROL 0.5-3(2.5)MG/3ML NEB NEB SCH ×4 (01:18→21:01)
[2021-07-26 04:00] VITALS: BP 108/62
[2021-07-26] MEDS: MEROPENEM 500 MG in SODIUM CHLORIDE 0.9% 50 ML IV SCH ×3 (06:22→21:55)
[2021-07-26] MEDS: DEXT 5%/0.45% NACL 1000ML 1,000 ML IV SCH ×3 (06:23→19:25)
[2021-07-26 08:00] VITALS: BP 120/81
[2021-07-26 09:01] LABS: BASOPHILS % 0.2 % (0.0-2.0); HEMATOCRIT. 34.5 % (42.0-52.0); HEMOGLOBIN. 11.8 g/dL (14.0-18.0); LYMPHOCYTES % 11.1 % (20.0-50.0); MEAN CORPUSCULAR HEMOGLOBIN 28.4 pg (28.0-32.0); MEAN CORPUSCULAR VOLUME 82.9 fL (80.0-94.0); MEAN PLATELET VOLUME 9.6 fl (7.4-10.4); NEUTROPHILS % 80.7 % (40.0-76.0); PLATELET 231 x1000/uL (130-400); RED BLOOD CELL COUNT 4.16 mill/uL (4.7-6.1); RED CELL DISTRIBUTION WIDTH 13.3 % (11.6-14.6)
[2021-07-26 09:14] LABS: CHLORIDE 112 mEq/L (98-107)
[2021-07-26] MEDS: LEVETIRACETAM 500MG PREMIX 100 ML IV SCH ×2 (09:33→21:55)
[2021-07-26] MEDS: METOCLOPRAMIDE HCL 10MG TABLET PO SCH ×3 (09:33→18:22)
[2021-07-26] MEDS: FAMOTIDINE 20MG/2ML VIAL IV SCH ×2 (09:34→21:55)
[2021-07-26] MEDS: ENOXAPARIN 40MG/0.4ML SYR SUBCUT SCH (09:38)
[2021-07-26] MEDS ORDERED: POTASSIUM CHLORIDE 20MEQ TABLET SR PO NR (10:45)
[2021-07-26 12:00] VITALS: BP 121/84
[2021-07-26 16:00] VITALS: BP 107/73
[2021-07-26 20:00] VITALS: BP 109/80
[2021-07-27] VITALS (7 sets, daily range): BP systolic 100–135; BP diastolic 69–126
[2021-07-27] MEDS: IPRATROPIUM/ALBUTEROL 0.5-3(2.5)MG/3ML NEB NEB SCH ×3 (01:46→17:21)
[2021-07-27] MEDS: DEXT 5%/0.45% NACL 1000ML 1,000 ML IV SCH ×3 (03:25→20:25)
[2021-07-27] MEDS: MEROPENEM 500 MG in SODIUM CHLORIDE 0.9% 50 ML IV SCH ×2 (06:43→13:30)
[2021-07-27 07:01] LABS: BASOPHILS % 0.3 % (0.0-2.0); HEMATOCRIT. 34.4 % (42.0-52.0); HEMOGLOBIN. 11.8 g/dL (14.0-18.0); LYMPHOCYTES % 24.2 % (20.0-50.0); MEAN CORPUSCULAR HEMOGLOBIN 28.7 pg (28.0-32.0); MEAN CORPUSCULAR VOLUME 83.4 fL (80.0-94.0); MEAN PLATELET VOLUME 10.3 fl (7.4-10.4); MONOCYTES % 11.9 % (2.0-8.0); NEUTROPHILS % 63.6 % (40.0-76.0); PLATELET 204 x1000/uL (130-400); RED BLOOD CELL COUNT 4.12 mill/uL (4.7-6.1); RED CELL DISTRIBUTION WIDTH 13.5 % (11.6-14.6)
[2021-07-27 07:06] LABS: CHLORIDE 108 mEq/L (98-107)
[2021-07-27] MEDS: LEVETIRACETAM 500MG PREMIX 100 ML IV SCH ×2 (08:18→20:25)
[2021-07-27] MEDS: FAMOTIDINE 20MG/2ML VIAL IV SCH ×2 (08:18→20:25)
[2021-07-27] MEDS: METOCLOPRAMIDE HCL 10MG TABLET PO SCH ×3 (08:19→17:06)
[2021-07-27] MEDS: ENOXAPARIN 40MG/0.4ML SYR SUBCUT SCH (08:20)
[2021-07-27] MEDS ORDERED: LIDOCAINE HCL 1% 10 MG/ML 10ML VIAL ONE (08:30)
[2021-07-27] MEDS ORDERED: POTASSIUM CHLORIDE 20MEQ TABLET SR PO SCH (11:30)
[2021-07-27] MEDS ORDERED: METO25TA6 PO (12:53)
[2021-07-27] MEDS ORDERED: METOPROLOL TARTRATE 25MG TABLET PO SCH ×2 (13:00→21:00)
== END 2021-07-27 21:30 | disposition home health service (06) | DRG 720 ==
LOC: ER 07-24 00:24 → 6WST 07-24 03:55 → EDBEDREQTM 07-24 03:58 → EDBEDREQ 07-24 03:58 → ENRESERV 07-24 07:38
PROVIDERS: ADMIT Internal Medicine; ATTEND Internal Medicine
PROC: 05HY33Z Insertion of Infusion Device into Upper Vein, Percutaneous Approach (ICD-10-PCS; principal; 2021-07-27)
PROC: B54MZZA Ultrasonography of Right Upper Extremity Veins, Guidance (ICD-10-PCS; 2021-07-27)
DX: A41.50 Gram-negative sepsis, unspecified (principal); G82.50 Quadriplegia, unspecified; G93.40 Encephalopathy, unspecified; J96.11 Chronic respiratory failure with hypoxia; E87.2 Acidosis; J18.9 Pneumonia, unspecified organism; Z93.0 Tracheostomy status; E86.0 Dehydration; G40.909 Epilepsy, unspecified, not intractable, without status epilepticus; R13.10 Dysphagia, unspecified; N39.0 Urinary tract infection, site not specified; N20.0 Calculus of kidney; Z20.822 Contact with and (suspected) exposure to COVID-19; Z93.1 Gastrostomy status; Z88.8 Allergy status to other drugs, medicaments and biological substances; Z79.899 Other long term (current) drug therapy; Z79.82 Long term (current) use of aspirin; Z87.820 Personal history of traumatic brain injury; Z87.442 Personal history of urinary calculi; Z87.440 Personal history of urinary (tract) infections; Z98.2 Presence of cerebrospinal fluid drainage device; Z74.01 Bed confinement status
CPT/HCPCS: 36415; 36600; 71045; 74176; 76770; 76937; 80048; 80053; 80061; 81003; 82375; 82805; 83605; 84145; 84439; 84443; 85025; 87070; 87077; 87186; 87426; 87804; 93005; 93306; 93970; 94640; 99291; A6261; C1725; J0456; J1650; J1953; J2185; J2543; J2920; J3490; J7030; J7040; J7060; J8597

== ENCOUNTER 2021-08-03 07:59 | Emergency (ER) | payer OTHER ==
[~2021-08-03] VITALS: Ht 165.1 cm; Wt 50.0 kg
[~2021-08-03 07:59] MED LIST changes: -CLONIDINE; +KEPPSOL MT; +METO25TA6 PO; -METR500T PO
[2021-08-03] MEDS ORDERED: LEVETIRACETAM 1000MG PREMIX 100 ML IV ONE (08:15)
[2021-08-03 08:44] LABS: BASOPHILS % 0.8 % (0.0-2.0); EOSINOPHILS % 1.9 % (0.0-5.0); HEMATOCRIT. 38.6 % (42.0-52.0); HEMOGLOBIN. 13.3 g/dL (14.0-18.0); LYMPHOCYTES % 30.9 % (20.0-50.0); MEAN CORPUSCULAR HEMOGLOBIN 28.7 pg (28.0-32.0); MEAN CORPUSCULAR VOLUME 83.5 fL (80.0-94.0); MEAN PLATELET VOLUME 8.6 fl (7.4-10.4); MONOCYTES % 9.6 % (2.0-8.0); NEUTROPHILS % 56.8 % (40.0-76.0); PLATELET 361 x1000/uL (130-400); RED BLOOD CELL COUNT 4.63 mill/uL (4.7-6.1); RED CELL DISTRIBUTION WIDTH 13.3 % (11.6-14.6)
[2021-08-03 08:51] LABS: CHLORIDE 104 mEq/L (98-107)
[2021-08-03 08:55] LABS: ETHANOL BLOOD < 10 mg/dL
[2021-08-03 10:12] LABS: CLARITY URINE CLEAR (CLEAR); COLOR URINE YELLOW (YELLOW); KETONES URINE NEGATIVE (NEGATIVE); LEUKOCYTE ESTERASE URINE 1+ (NEGATIVE); NITRITE URINE NEGATIVE (NEGATIVE); OCCULT BLOOD URINE TRACE (NEGATIVE); PROTEIN URINE NEGATIVE (NEGATIVE); UROBILINOGEN URINE 0.2 E.U./dL (0.2-1.0)
[2021-08-03 10:27] LABS: *AMPHETAMINES SCREEN URINE NEGATIVE (NEGATIVE); *BARBITURATES SCREEN URINE NEGATIVE (NEGATIVE)
[2021-08-03 10:28] LABS: *BENZODIAZEPINES SCREEN URINE PRESUMTIVE POSITIVE (NEGATIVE); *COCAINE SCREEN URINE NEGATIVE (NEGATIVE); CANNABINOID URINE SCREEN NEGATIVE (NEGATIVE); METHADONE URINE SCREEN NEGATIVE (NEGATIVE); OPIATES URINE SCREEN NEGATIVE (NEGATIVE); PHENCYCLIDINE URINE SCREEN NEGATIVE (NEGATIVE)
[2021-08-03] MEDS ORDERED: CEFTRIAXONE 1 G PREMIX 50 ML IV ONE (11:00)
[2021-08-03] MEDS ORDERED: MEROPENEM 1,000 MG in SODIUM CHLORIDE 0.9% 100 ML IV SCH (11:15)
[2021-08-03] MEDS ORDERED: DEXT 5%/0.45% NACL 1000ML 1,000 ML IV SCH (16:15)
[2021-08-03] MEDS ORDERED: LORAZEPAM 2MG/ML CPJ IV PRN (16:15)
[2021-08-03] MEDS ORDERED: HYDROCODONE/ACETAMINOPHEN 5/325MG TABLET PO PRN (16:15)
[2021-08-03] MEDS ORDERED: FAMOTIDINE 20MG/2ML VIAL IV SCH (16:30)
[2021-08-03] MEDS ORDERED: ENOXAPARIN 40MG/0.4ML SYR SUBCUT SCH (16:30)
[2021-08-03 16:51] LABS: CREATINE KINASE MB FRACTION 2.2 ng/mL (0.5-3.6)
[2021-08-03 17:56] VITALS: BP 132/91
[2021-08-03] MEDS ORDERED: LEVETIRACETAM 1000MG PREMIX 100 ML IV SCH (21:00)
[2021-08-03] MEDS ORDERED: LEVETIRACETAM 1,000 MG in SODIUM CHLORIDE 0.9% 100 ML IV SCH (21:00)
== END 2021-08-03 18:28 | disposition short-term general hospital (02) ==
LOC: ER 07:59 → EDBEDREQ 13:22 → EDBEDREQTM 13:22 → ER 18:28 → CANBEDREQ 20:13
DX: G40.909 Epilepsy, unspecified, not intractable, without status epilepticus (principal); Z93.0 Tracheostomy status; Z87.820 Personal history of traumatic brain injury; Z98.890 Other specified postprocedural states; Z88.3 Allergy status to other anti-infective agents
CPT/HCPCS: 36415; 70450; 71045; 80053; 80305; 80320; 81003; 82542; 82550; 82553; 85025; 87040; 93005; 96365; 96367; 99285; J1953; J2185; J7050; Z7610; J0696; G0480

== ENCOUNTER 2021-09-26 09:10 | Emergency (ER) | payer OTHER ==
[~2021-09-26] VITALS: Ht 162.6 cm; Wt 58.0 kg
[2021-09-26] MEDS ORDERED: DIATR MEGLU/DIATRIZOATE SOLN 30ML ONE (10:37)
[2021-09-26 11:30] VITALS: BP 125/84
== END 2021-09-26 12:53 | disposition home or self-care (01) ==
LOC: ER 09:29
DX: Z43.1 Encounter for attention to gastrostomy (principal)
CPT/HCPCS: 74021; 99284; Q9963

== ENCOUNTER 2021-12-14 00:13 | Inpatient (IN) | payer OTHER ==
[~2021-12-14] VITALS: Ht 182.9 cm; Wt 64.6 kg
[2021-12-14] MEDS ORDERED: ACETAMINOPHEN 650MG SUPP PR STA (00:34)
[2021-12-14] MEDS ORDERED: SODIUM CHLORIDE 0.9% 1,000 ML IV ONE (00:45)
[2021-12-14 01:17] LABS: HEMATOCRIT. 41.4 % (42.0-52.0); HEMOGLOBIN. 13.7 g/dL (14.0-18.0); MEAN CORPUSCULAR HEMOGLOBIN 27.8 pg (28.0-32.0); MEAN CORPUSCULAR VOLUME 83.7 fL (80.0-94.0); MEAN PLATELET VOLUME 9.9 fl (7.4-10.4); PLATELET 205 x1000/uL (130-400); RED BLOOD CELL COUNT 4.94 mill/uL (4.7-6.1); RED CELL DISTRIBUTION WIDTH 13.1 % (11.6-14.6)
[2021-12-14 01:22] LABS: CHLORIDE 102 mEq/L (98-107)
[2021-12-14 01:26] LABS: CLARITY URINE CLEAR (CLEAR); COLOR URINE YELLOW (YELLOW); KETONES URINE NEGATIVE (NEGATIVE); LEUKOCYTE ESTERASE URINE 3+ (NEGATIVE); NITRITE URINE POSITIVE (NEGATIVE); OCCULT BLOOD URINE 1+ (NEGATIVE); PH URINE 7.5 (4.5-8.0); PROTEIN URINE NEGATIVE (NEGATIVE); SPECIFIC GRAVITY URINE 1.014 (1.005-1.030); UROBILINOGEN URINE 0.2 E.U./dL (0.2-1.0)
[2021-12-14 01:50] LABS: PLATELET ESTIMATE NORMAL
[2021-12-14] MEDS ORDERED: CEFTRIAXONE 1 G PREMIX 50 ML IV NR (02:30)
[2021-12-14] MEDS ORDERED: ACETAMINOPHEN 650MG SUPP PR NR ×2 (09:15→14:45)
[2021-12-14 10:30] VITALS: BP 98/55
[2021-12-14] MEDS ORDERED: CLONIDINE 0.1MG TABLET PO PRN (11:00)
[2021-12-14] MEDS ORDERED: ONDANSETRON HCL 4MG/2ML INJ IV PRN (11:00)
[2021-12-14] MEDS ORDERED: MORPHINE SULFATE 2 MG/ML CPJ (NOT FOR IM USE) IV PRN (11:00)
[2021-12-14] MEDS ORDERED: DIPHENHYDRAMINE 50MG/ML VIAL IV PRN (11:00)
[2021-12-14] MEDS ORDERED: DOCUSATE SODIUM 100MG CAPSULE PO PRN (11:00)
[2021-12-14] MEDS ORDERED: MAGNESIUM/ALUMINUM HYDROXIDE/SIMETHICONE 30ML UDC PO PRN (11:00)
[2021-12-14] MEDS ORDERED: NA PHOS,M-B/NA PHOS,DI-BA ENEMA 118ML PR PRN (11:00)
[2021-12-14] MEDS ORDERED: HYDROCODONE/ACETAMINOPHEN 5/325MG TABLET PO PRN (11:00)
[2021-12-14] MEDS ORDERED: GUAIFENESIN 200MG/10ML SUGAR FREE UDC PO PRN (11:00)
[2021-12-14] MEDS ORDERED: LORAZEPAM 0.5MG TABLET PO PRN (11:00)
[2021-12-14] MEDS ORDERED: IPRATROPIUM/ALBUTEROL 0.5-3(2.5)MG/3ML NEB NEB PRN (11:00)
[2021-12-14] MEDS ORDERED: ACETAMINOPHEN 650MG SUPP PR PRN (11:00)
[2021-12-14] MEDS: DEXT 5%/0.9% NACL 1,000 ML IV SCH ×2 (13:27→20:19)
[2021-12-14] MEDS: IPRATROPIUM/ALBUTEROL 0.5-3(2.5)MG/3ML NEB NEB SCH ×2 (13:29→20:28)
[2021-12-14] MEDS ORDERED: DILTIAZEM HCL 5MG/ML 5ML VIAL IV NR ×2 (14:30→14:55)
[2021-12-14] MEDS ORDERED: SODIUM CHLORIDE 0.9% 500 ML IV ONE (14:45)
[2021-12-14] MEDS: MEROPENEM 1,000 MG in SODIUM CHLORIDE 0.9% 100 ML IV SCH ×2 (15:21→18:07)
[2021-12-14 15:33] LABS: BG BASE EXCESS -5.6 mmol/L (-2.0-2.0); BG CARBOXYHEMOGLOBIN 0.6 % (0.5-1.5); BG DEOXYHEMOGLOBIN 4.3 % (0.0-5.0); BG FRACTION INSPIRED OXYGEN 28; BG HCO3 ACT 17.8 mmol/L (22.0-26.0); BG METHEMOGLOBIN 0.1 % (0.0-1.5); BG OXYGEN SATURATION 95.7 % (92.0-98.5); BG PCO2 28.8 mmHg (35.0-45.0); BG PH 7.408 (7.350-7.450); BG PO2 80.1 mmHg (75.0-100.0); BG SAMPLE SITE LEFT RADIAL; BG TOTAL HEMOGLOBIN 12.5 g/dL (12.0-18.0); BG VENT MODE MASK - VENTI
[2021-12-14 16:32] LABS: HEMATOCRIT. 34.5 % (42.0-52.0); HEMOGLOBIN. 11.5 g/dL (14.0-18.0); MEAN CORPUSCULAR HEMOGLOBIN 28.3 pg (28.0-32.0); MEAN CORPUSCULAR VOLUME 84.6 fL (80.0-94.0); MEAN PLATELET VOLUME 9.4 fl (7.4-10.4); PLATELET 147 x1000/uL (130-400); RED BLOOD CELL COUNT 4.08 mill/uL (4.7-6.1); RED CELL DISTRIBUTION WIDTH 13.1 % (11.6-14.6)
[2021-12-14 16:44] LABS: CHLORIDE 117 mEq/L (98-107)
[2021-12-14 17:15] VITALS: BP 103/52
[2021-12-14 17:34] LABS: INR 1.5; PROTHROMBIN TIME 15.5 sec (9.6-11.0)
[2021-12-14 17:40] LABS: PLATELET ESTIMATE NORMAL
[2021-12-14 18:00] VITALS: BP 105/60
[2021-12-14] MEDS: LEVETIRACETAM 500MG/5ML CUP GT SCH (18:06)
[2021-12-14] MEDS ORDERED: NALOXONE HCL 0.4MG/ML VIAL IV PRN (18:45)
[2021-12-14 20:00] VITALS: BP 116/74
[2021-12-14] MEDS ORDERED: FAMOTIDINE 20MG TABLET PO SCH (21:00)
[2021-12-14] MEDS ORDERED: PNEUMOCOCCAL 23-VAL P-SAC VAC 0.5 ML IM ONE (21:45)
[2021-12-14 22:00] VITALS: BP 130/78
[2021-12-15] VITALS (16 sets, daily range): BP systolic 85–152; BP diastolic 45–104
[2021-12-15] MEDS: MEROPENEM 1,000 MG in SODIUM CHLORIDE 0.9% 100 ML IV SCH ×4 (00:04→22:30)
[2021-12-15] MEDS: ACETAMINOPHEN 325MG TABLET PO PRN ×3 (01:08→14:24)
[2021-12-15] MEDS: IPRATROPIUM/ALBUTEROL 0.5-3(2.5)MG/3ML NEB NEB SCH ×4 (01:59→20:58)
[2021-12-15] MEDS: DEXT 5%/0.9% NACL 1,000 ML IV SCH ×3 (04:32→22:32)
[2021-12-15 07:12] LABS: BASOPHILS % 0.3 % (0.0-2.0); EOSINOPHILS % 0.1 % (0.0-5.0); HEMATOCRIT. 32.6 % (42.0-52.0); HEMOGLOBIN. 11.2 g/dL (14.0-18.0); LYMPHOCYTES % 11.4 % (20.0-50.0); MEAN CORPUSCULAR HEMOGLOBIN 28.5 pg (28.0-32.0); MEAN CORPUSCULAR VOLUME 83.4 fL (80.0-94.0); MEAN PLATELET VOLUME 9.9 fl (7.4-10.4); MONOCYTES % 7.4 % (2.0-8.0); NEUTROPHILS % 80.8 % (40.0-76.0); PLATELET 158 x1000/uL (130-400); RED BLOOD CELL COUNT 3.91 mill/uL (4.7-6.1); RED CELL DISTRIBUTION WIDTH 13.1 % (11.6-14.6)
[2021-12-15] MEDS: LEVETIRACETAM 500MG/5ML CUP GT SCH ×2 (08:13→16:48)
[2021-12-15] MEDS ORDERED: DILTIAZEM HCL 5MG/ML 5ML VIAL IV NR (08:45)
[2021-12-15] MEDS: METOCLOPRAMIDE HCL 5MG TABLET PO SCH ×2 (12:46→16:48)
[2021-12-15] MEDS: BACLOFEN 10MG TABLET PO SCH ×2 (12:47→16:48)
[2021-12-15] MEDS: METOPROLOL TARTRATE 25MG TABLET PO SCH ×2 (12:47→16:48)
[2021-12-15] MEDS ORDERED: METOCLOPRAMIDE HCL 10MG TABLET PO SCH (13:00)
[2021-12-15] MEDS: LORAZEPAM 2MG/ML CPJ IV PRN (14:24)
[2021-12-15 14:39] LABS: CHLORIDE 116 mEq/L (98-107)
[2021-12-15 15:02] LABS: HDL CHOLESTEROL 22 mg/dL (40-59); LDL CHOLESTEROL 22 mg/dL (5-100)
[2021-12-15] MEDS ORDERED: LIDOCAINE HCL 1% 20ML VIAL (Pyxis) INJ ONE (15:34)
[2021-12-15] MEDS ORDERED: IOHEXOL-300 50 ML BOTTLE IV ONE (15:52)
[2021-12-15 16:19] LABS: INR 1.2; PARTIAL THROMBOPLASTIN TIME 35.6 sec (23.4-31.0); PROTHROMBIN TIME 12.4 sec (9.6-11.0)
[2021-12-15] MEDS: FAMOTIDINE 20MG TABLET GT SCH (16:48)
[2021-12-16] VITALS (12 sets, daily range): BP systolic 118–156; BP diastolic 74–102
[2021-12-16] MEDS: IPRATROPIUM/ALBUTEROL 0.5-3(2.5)MG/3ML NEB NEB SCH ×4 (02:17→21:31)
[2021-12-16] MEDS: DEXT 5%/0.9% NACL 1,000 ML IV SCH ×3 (03:25→23:49)
[2021-12-16] MEDS: ACETAMINOPHEN 325MG TABLET PO PRN (03:34)
[2021-12-16] MEDS: MEROPENEM 1,000 MG in SODIUM CHLORIDE 0.9% 100 ML IV SCH ×2 (05:50→13:52)
[2021-12-16] MEDS ORDERED: POTASSIUM CHLORIDE INJ 40 MEQ in DEXT 5% WATER 250 ML IV ONE (08:15)
[2021-12-16] MEDS ORDERED: POTASSIUM CHLORIDE 20MEQ/PACKET PO SCH (08:15)
[2021-12-16] MEDS ORDERED: KCL 20MEQ/100ML X 2 FOR TOTAL KCL 40MEQ/200ML IV SCH (09:00)
[2021-12-16] MEDS: METOCLOPRAMIDE HCL 5MG TABLET PO SCH ×3 (09:00→16:26)
[2021-12-16] MEDS: FAMOTIDINE 20MG TABLET GT SCH ×2 (09:01→16:26)
[2021-12-16] MEDS: ASPIRIN 81MG EC TABLET PO SCH (09:01)
[2021-12-16] MEDS: BACLOFEN 10MG TABLET PO SCH ×3 (09:01→16:27)
[2021-12-16] MEDS: METOPROLOL TARTRATE 25MG TABLET PO SCH ×2 (09:01→16:27)
[2021-12-16] MEDS: LEVETIRACETAM 500MG/5ML CUP GT SCH ×2 (09:01→16:26)
[2021-12-16 13:08] LABS: BASOPHILS % 0.3 % (0.0-2.0); EOSINOPHILS % 0.3 % (0.0-5.0); HEMATOCRIT. 30.9 % (42.0-52.0); HEMOGLOBIN. 10.5 g/dL (14.0-18.0); MEAN CORPUSCULAR HEMOGLOBIN 28.3 pg (28.0-32.0); MEAN CORPUSCULAR VOLUME 83.7 fL (80.0-94.0); MEAN PLATELET VOLUME 9.6 fl (7.4-10.4); MONOCYTES % 10.4 % (2.0-8.0); PLATELET 132 x1000/uL (130-400)
[2021-12-16 13:22] LABS: CHLORIDE 118 mEq/L (98-107)
[2021-12-16] MEDS ORDERED: POTASSIUM CHLORIDE 20MEQ/PACKET PO NR (13:45)
[2021-12-16] MEDS: PIPERACILLIN/TAZOBACTAM 3.375 G in DEXTROSE 5% WATER 50 ML IV SCH ×2 (19:55→22:00)
[2021-12-17] VITALS (12 sets, daily range): BP systolic 111–158; BP diastolic 71–98
[2021-12-17] MEDS: LORAZEPAM 2MG/ML CPJ IV PRN (00:08)
[2021-12-17] MEDS: IPRATROPIUM/ALBUTEROL 0.5-3(2.5)MG/3ML NEB NEB SCH ×4 (01:30→20:38)
[2021-12-17] MEDS: PIPERACILLIN/TAZOBACTAM 3.375 G in DEXTROSE 5% WATER 50 ML IV SCH (05:40)
[2021-12-17 06:26] LABS: BASOPHILS % 0.2 % (0.0-2.0); EOSINOPHILS % 0.9 % (0.0-5.0); HEMATOCRIT. 27.2 % (42.0-52.0); HEMOGLOBIN. 9.4 g/dL (14.0-18.0); LYMPHOCYTES % 23.1 % (20.0-50.0); MEAN CORPUSCULAR HEMOGLOBIN 28.3 pg (28.0-32.0); MEAN CORPUSCULAR VOLUME 82.1 fL (80.0-94.0); MEAN PLATELET VOLUME 9.8 fl (7.4-10.4); MONOCYTES % 11.2 % (2.0-8.0); NEUTROPHILS % 64.6 % (40.0-76.0); PLATELET 139 x1000/uL (130-400); RED BLOOD CELL COUNT 3.32 mill/uL (4.7-6.1); RED CELL DISTRIBUTION WIDTH 12.7 % (11.6-14.6)
[2021-12-17 06:34] LABS: CHLORIDE 114 mEq/L (98-107)
[2021-12-17] MEDS: BACLOFEN 10MG TABLET PO SCH ×3 (08:44→16:36)
[2021-12-17] MEDS: LEVETIRACETAM 500MG/5ML CUP GT SCH ×2 (08:44→16:36)
[2021-12-17] MEDS: ASPIRIN 81MG EC TABLET PO SCH (08:44)
[2021-12-17] MEDS: FAMOTIDINE 20MG TABLET GT SCH ×2 (08:44→16:36)
[2021-12-17] MEDS: METOCLOPRAMIDE HCL 5MG TABLET PO SCH ×3 (08:48→16:36)
[2021-12-17] MEDS ORDERED: POTASSIUM CHLORIDE 20MEQ/PACKET PO NR (10:30)
[2021-12-17] MEDS ORDERED: LIDOCAINE HCL 1% 20ML VIAL (Pyxis) INJ ONE (10:52)
[2021-12-17 11:18] LABS: BG BASE EXCESS 4.2 mmol/L (-2.0-2.0); BG CARBOXYHEMOGLOBIN 0.2 % (0.5-1.5); BG DEOXYHEMOGLOBIN 4.3 % (0.0-5.0); BG FRACTION INSPIRED OXYGEN 35; BG HCO3 ACT 27.8 mmol/L (22.0-26.0); BG METHEMOGLOBIN 0.2 % (0.0-1.5); BG OXYGEN SATURATION 95.7 % (92.0-98.5); BG OXYHEMOGLOBIN 95.3 % (94.0-97.0); BG PCO2 37.8 mmHg (35.0-45.0); BG PH 7.485 (7.350-7.450); BG SAMPLE SITE LEFT RADIAL; BG TOTAL HEMOGLOBIN 10.1 g/dL (12.0-18.0); BG VENT MODE COOL AEROSOL
[2021-12-17] MEDS: METOPROLOL TARTRATE 25MG TABLET PO SCH ×2 (11:42→16:37)
[2021-12-17] MEDS: DEXT 5%/0.45% NACL 1000ML 1,000 ML IV SCH ×2 (12:25→22:05)
[2021-12-17] MEDS: CEFEPIME 2,000 MG in DEXT 5% WATER 100 ML IV SCH ×2 (12:25→22:05)
[2021-12-17] MEDS: KCL 20MEQ/100ML PREMIX 100 ML IV SCH ×3 (12:26→16:41)
[2021-12-17] MEDS: AMOXICILLIN/POTASSIUM CLAVULANATE 875/125MG TAB PO SCH ×2 (13:34→22:04)
[2021-12-18] VITALS (12 sets, daily range): BP systolic 114–143; BP diastolic 71–93
[2021-12-18] MEDS: IPRATROPIUM/ALBUTEROL 0.5-3(2.5)MG/3ML NEB NEB SCH ×4 (00:54→20:25)
[2021-12-18] MEDS: ACETAMINOPHEN 325MG TABLET PO PRN (03:52)
[2021-12-18] MEDS: DEXT 5%/0.45% NACL 1000ML 1,000 ML IV SCH ×2 (05:30→16:47)
[2021-12-18 06:56] LABS: BASOPHILS % 0.4 % (0.0-2.0); EOSINOPHILS % 3.5 % (0.0-5.0); HEMATOCRIT. 28.9 % (42.0-52.0); LYMPHOCYTES % 30.3 % (20.0-50.0); MEAN CORPUSCULAR HEMOGLOBIN 28.4 pg (28.0-32.0); MEAN CORPUSCULAR VOLUME 82.2 fL (80.0-94.0); MEAN PLATELET VOLUME 9.6 fl (7.4-10.4); MONOCYTES % 12.2 % (2.0-8.0); NEUTROPHILS % 53.6 % (40.0-76.0); PLATELET 156 x1000/uL (130-400); RED BLOOD CELL COUNT 3.52 mill/uL (4.7-6.1); RED CELL DISTRIBUTION WIDTH 12.6 % (11.6-14.6)
[2021-12-18 08:00] LABS: CHLORIDE 110 mEq/L (98-107)
[2021-12-18 08:23] LABS: BG BASE EXCESS 2.1 mmol/L (-2.0-2.0); BG CARBOXYHEMOGLOBIN 0.3 % (0.5-1.5); BG DEOXYHEMOGLOBIN 2.2 % (0.0-5.0); BG FRACTION INSPIRED OXYGEN 35; BG HCO3 ACT 25.4 mmol/L (22.0-26.0); BG METHEMOGLOBIN 0.6 % (0.0-1.5); BG OXYGEN SATURATION 97.8 % (92.0-98.5); BG OXYHEMOGLOBIN 96.9 % (94.0-97.0); BG PCO2 35.2 mmHg (35.0-45.0); BG PH 7.476 (7.350-7.450); BG PO2 109.7 mmHg (75.0-100.0); BG SAMPLE SITE RIGHT RADIAL; BG TOTAL HEMOGLOBIN 11.9 g/dL (12.0-18.0); BG VENT MODE COOL AEROSOL
[2021-12-18] MEDS: LEVETIRACETAM 500MG/5ML CUP GT SCH ×2 (08:54→18:11)
[2021-12-18] MEDS: METOCLOPRAMIDE HCL 5MG TABLET PO SCH ×3 (08:54→18:12)
[2021-12-18] MEDS: AMOXICILLIN/POTASSIUM CLAVULANATE 875/125MG TAB PO SCH ×2 (08:54→20:35)
[2021-12-18] MEDS: ASPIRIN 81MG EC TABLET PO SCH (08:54)
[2021-12-18] MEDS: FAMOTIDINE 20MG TABLET GT SCH ×2 (08:54→18:12)
[2021-12-18] MEDS: BACLOFEN 10MG TABLET PO SCH ×3 (08:54→18:12)
[2021-12-18] MEDS: CEFEPIME 2,000 MG in DEXT 5% WATER 100 ML IV SCH ×2 (08:57→20:35)
[2021-12-18] MEDS: METOPROLOL TARTRATE 25MG TABLET PO SCH ×2 (08:57→18:13)
[2021-12-19] VITALS (12 sets, daily range): BP systolic 112–136; BP diastolic 65–97
[2021-12-19] MEDS: IPRATROPIUM/ALBUTEROL 0.5-3(2.5)MG/3ML NEB NEB SCH ×4 (01:06→20:15)
[2021-12-19] MEDS: DEXT 5%/0.45% NACL 1000ML 1,000 ML IV SCH ×2 (02:40→13:02)
[2021-12-19] MEDS: METOPROLOL TARTRATE 25MG TABLET PO SCH ×2 (09:11→16:24)
[2021-12-19] MEDS: ASPIRIN 81MG EC TABLET PO SCH (09:11)
[2021-12-19] MEDS: AMOXICILLIN/POTASSIUM CLAVULANATE 875/125MG TAB PO SCH ×2 (09:11→20:45)
[2021-12-19] MEDS: FAMOTIDINE 20MG TABLET GT SCH ×2 (09:11→16:23)
[2021-12-19] MEDS: BACLOFEN 10MG TABLET PO SCH ×3 (09:11→16:23)
[2021-12-19] MEDS: CEFEPIME 2,000 MG in DEXT 5% WATER 100 ML IV SCH ×2 (09:12→20:44)
[2021-12-19] MEDS: METOCLOPRAMIDE HCL 5MG TABLET PO SCH ×3 (09:12→16:23)
[2021-12-19] MEDS: LEVETIRACETAM 500MG/5ML CUP GT SCH ×2 (09:57→16:23)
[2021-12-19 12:10] LABS: CHLORIDE 108 mEq/L (98-107)
[2021-12-19 12:13] LABS: BASOPHILS % 0.5 % (0.0-2.0); EOSINOPHILS % 3.8 % (0.0-5.0); LYMPHOCYTES % 40.1 % (20.0-50.0); MEAN CORPUSCULAR HEMOGLOBIN 27.7 pg (28.0-32.0); MEAN CORPUSCULAR VOLUME 82.8 fL (80.0-94.0); MEAN PLATELET VOLUME 9.7 fl (7.4-10.4); MONOCYTES % 9.6 % (2.0-8.0); PLATELET 221 x1000/uL (130-400); RED BLOOD CELL COUNT 4.17 mill/uL (4.7-6.1); RED CELL DISTRIBUTION WIDTH 12.8 % (11.6-14.6)
[2021-12-19 12:40] LABS: HEMATOCRIT. 34.5 % (42.0-52.0); HEMOGLOBIN. 11.6 g/dL (14.0-18.0)
[2021-12-20] VITALS (15 sets, daily range): BP systolic 100–137; BP diastolic 65–104
[2021-12-20] MEDS: IPRATROPIUM/ALBUTEROL 0.5-3(2.5)MG/3ML NEB NEB SCH ×4 (01:44→20:11)
[2021-12-20] MEDS: LORAZEPAM 2MG/ML CPJ IV PRN (02:46)
[2021-12-20 06:21] LABS: BASOPHILS % 0.4 % (0.0-2.0); EOSINOPHILS % 3.3 % (0.0-5.0); HEMATOCRIT. 32.7 % (42.0-52.0); HEMOGLOBIN. 11.1 g/dL (14.0-18.0); LYMPHOCYTES % 20.3 % (20.0-50.0); MEAN CORPUSCULAR VOLUME 82.3 fL (80.0-94.0); MEAN PLATELET VOLUME 9.5 fl (7.4-10.4); MONOCYTES % 9.3 % (2.0-8.0); NEUTROPHILS % 66.7 % (40.0-76.0); PLATELET 265 x1000/uL (130-400); RED BLOOD CELL COUNT 3.97 mill/uL (4.7-6.1); RED CELL DISTRIBUTION WIDTH 12.6 % (11.6-14.6)
[2021-12-20 06:37] LABS: CHLORIDE 108 mEq/L (98-107)
[2021-12-20] MEDS ORDERED: POTASSIUM CHLORIDE 20MEQ TABLET SR PO NR (10:30)
[2021-12-20] MEDS ORDERED: SULFAMETHOXAZOLE/TRIMETHOPRIM 800/160MG TABLET PO SCH (10:30)
[2021-12-20 10:51] LABS: BG CARBOXYHEMOGLOBIN 0.2 % (0.5-1.5); BG DEOXYHEMOGLOBIN 1.6 % (0.0-5.0); BG FRACTION INSPIRED OXYGEN 35; BG HCO3 ACT 29.5 mmol/L (22.0-26.0); BG METHEMOGLOBIN 0.3 % (0.0-1.5); BG OXYGEN SATURATION 98.4 % (92.0-98.5); BG OXYHEMOGLOBIN 97.9 % (94.0-97.0); BG PCO2 43.1 mmHg (35.0-45.0); BG PH 7.453 (7.350-7.450); BG PO2 132.8 mmHg (75.0-100.0); BG SAMPLE SITE LEFT RADIAL; BG TOTAL HEMOGLOBIN 12.3 g/dL (12.0-18.0); BG VENT MODE COOL AEROSOL
[2021-12-20] MEDS: CEFEPIME 2,000 MG in DEXT 5% WATER 100 ML IV SCH (10:55)
[2021-12-20] MEDS: METOCLOPRAMIDE HCL 5MG TABLET PO SCH ×3 (10:55→17:45)
[2021-12-20] MEDS: FAMOTIDINE 20MG TABLET GT SCH ×2 (10:56→17:44)
[2021-12-20] MEDS: LEVETIRACETAM 500MG/5ML CUP GT SCH ×2 (10:56→17:44)
[2021-12-20] MEDS: AMOXICILLIN/POTASSIUM CLAVULANATE 875/125MG TAB PO SCH (10:56)
[2021-12-20] MEDS: ASPIRIN 81MG EC TABLET PO SCH (10:56)
[2021-12-20] MEDS: METOPROLOL TARTRATE 25MG TABLET PO SCH (10:57)
[2021-12-20] MEDS: BACLOFEN 10MG TABLET PO SCH ×3 (11:05→17:45)
[2021-12-20] MEDS ORDERED: CARVEDILOL 3.125 MG TABLET PO NR (11:30)
[2021-12-20] MEDS ORDERED: SULF1TAB48 MT (12:48)
[2021-12-20] MEDS ORDERED: AMOX-424 MT (12:48)
[2021-12-20] MEDS ORDERED: METOPROLOL TARTRATE 25MG TABLET PO NR (13:00)
[2021-12-20] MEDS ORDERED: METOPROLOL TARTRATE 25MG TABLET PO SCH (20:00)
== END 2021-12-20 22:00 | disposition home or self-care (01) | DRG 720 ==
LOC: ER 00:27 → 8WST 05:53 → 5EST 16:43
PROVIDERS: ADMIT Internal Medicine; ATTEND Internal Medicine
PROC: 0T9430Z Drainage of Left Kidney Pelvis with Drainage Device, Percutaneous Approach (ICD-10-PCS; principal; 2021-12-15)
PROC: BT121ZZ Fluoroscopy of Left Kidney using Low Osmolar Contrast (ICD-10-PCS; 2021-12-15)
PROC: 02HV33Z Insertion of Infusion Device into Superior Vena Cava, Percutaneous Approach (ICD-10-PCS; 2021-12-17)
PROC: B548ZZA Ultrasonography of Superior Vena Cava, Guidance (ICD-10-PCS; 2021-12-17)
DX: A41.81 Sepsis due to Enterococcus (principal); G93.40 Encephalopathy, unspecified; J15.1 Pneumonia due to Pseudomonas; J96.10 Chronic respiratory failure, unspecified whether with hypoxia or hypercapnia; Z99.11 Dependence on respirator [ventilator] status; Z93.0 Tracheostomy status; I47.1 Supraventricular tachycardia; E86.0 Dehydration; E87.6 Hypokalemia; Z20.822 Contact with and (suspected) exposure to COVID-19; G40.909 Epilepsy, unspecified, not intractable, without status epilepticus; A41.52 Sepsis due to Pseudomonas; N13.6 Pyonephrosis; R65.20 Severe sepsis without septic shock; I10 Essential (primary) hypertension; R13.10 Dysphagia, unspecified; Z87.442 Personal history of urinary calculi; Z87.820 Personal history of traumatic brain injury; Z98.2 Presence of cerebrospinal fluid drainage device; Z79.899 Other long term (current) drug therapy; Z74.01 Bed confinement status; Z88.1 Allergy status to other antibiotic agents; Z79.82 Long term (current) use of aspirin; Z93.1 Gastrostomy status; Z87.440 Personal history of urinary (tract) infections
CPT/HCPCS: 36415; 36600; 50432; 71045; 74176; 76937; 80048; 80053; 80061; 81003; 82375; 82805; 83605; 83735; 84132; 84145; 84153; 84443; 85025; 87070; 87077; 87186; 87426; 93005; 93970; 94640; 99285; C1725; C1729; C1760; C1769; J0692; J0696; J2060; J2185; J2405; J2543; J3480; J3490; J7030; J7042; J7050; J7060; J8597; Q9967; A4315; G0103

== ENCOUNTER 2022-02-08 21:37 | Emergency (ER) | payer OTHER ==
[~2022-02-08] VITALS: Ht 165.1 cm; Wt 55.0 kg
[~2022-02-08 21:37] MED LIST changes: +AMOX-424 MT; -ATIVAN; -HEPARIN; -KEPPRA; +SULF1TAB48 MT
[2022-02-08] MEDS ORDERED: SODIUM CHLORIDE 0.9% 1000ML BAG (SEPSIS BOLUS) IV ONE (22:45)
[2022-02-08] MEDS ORDERED: LEVOFLOXACIN 750MG PREMIX 150 ML IV ONE (22:45)
[2022-02-08 23:23] LABS: BASOPHILS % 0.3 % (0.0-2.0); HEMATOCRIT. 35.3 % (42.0-52.0); HEMOGLOBIN. 11.4 g/dL (14.0-18.0); LYMPHOCYTES % 9.7 % (20.0-50.0); MEAN CORPUSCULAR HEMOGLOBIN 26.9 pg (28.0-32.0); MEAN CORPUSCULAR VOLUME 83.1 fL (80.0-94.0); MEAN PLATELET VOLUME 8.3 fl (7.4-10.4); PLATELET 312 x1000/uL (130-400); RED BLOOD CELL COUNT 4.24 mill/uL (4.7-6.1); RED CELL DISTRIBUTION WIDTH 13.6 % (11.6-14.6)
[2022-02-08 23:33] LABS: CHLORIDE 99 mEq/L (98-107)
[2022-02-08] MEDS ORDERED: IBUPROFEN 100MG/5ML UDC GT NR (23:45)
[2022-02-08] MEDS ORDERED: IBUPROFEN 100MG/5ML UDC GT ONE (23:45)
[2022-02-09] MEDS ORDERED: METOPROLOL TARTRATE 5MG/5ML VIAL IV NR (00:30)
[2022-02-09 00:51] LABS: CLARITY URINE CLOUDY (CLEAR); COLOR URINE YELLOW (YELLOW); KETONES URINE NEGATIVE (NEGATIVE); LEUKOCYTE ESTERASE URINE 3+ (NEGATIVE); NITRITE URINE POSITIVE (NEGATIVE); OCCULT BLOOD URINE 2+ (NEGATIVE); PH URINE 8.5 (4.5-8.0); PROTEIN URINE 2+ (NEGATIVE); SPECIFIC GRAVITY URINE 1.012 (1.005-1.030); UROBILINOGEN URINE 0.2 E.U./dL (0.2-1.0)
[2022-02-09] MEDS ORDERED: ACETAMINOPHEN 160 MG/5 ML UD CUP GT ONE (02:00)
[2022-02-09] MEDS ORDERED: ACETAMINOPHEN 160MG/5ML UDC GT NR (02:15)
[2022-02-09] MEDS ORDERED: ONDANSETRON HCL 4MG/2ML INJ IV ONE (04:00)
[2022-02-09 10:02] VITALS: BP 121/82
== END 2022-02-09 10:04 | disposition short-term general hospital (02) ==
LOC: ER 21:37
DX: A41.9 Sepsis, unspecified organism (principal); R50.9 Fever, unspecified; R00.0 Tachycardia, unspecified; I10 Essential (primary) hypertension; G40.909 Epilepsy, unspecified, not intractable, without status epilepticus; Z87.820 Personal history of traumatic brain injury; Z88.3 Allergy status to other anti-infective agents; Z87.442 Personal history of urinary calculi; Z93.1 Gastrostomy status; Z93.0 Tracheostomy status; Z98.890 Other specified postprocedural states; Z79.899 Other long term (current) drug therapy; Z79.82 Long term (current) use of aspirin
CPT/HCPCS: 36415; 71045; 80053; 81003; 83605; 83690; 84145; 85025; 87040; 87077; 87086; 87186; 87804; 93005; 96361; 96365; 96366; 96375; 99291; J1956; J2405; J3490; J7030; Z7610; A4315

== ENCOUNTER 2022-07-13 15:53 | Emergency (ER) | payer OTHER ==
[~2022-07-13] VITALS: Ht 180.3 cm; Wt 63.5 kg
[2022-07-13] MEDS ORDERED: DIATR MEGLU/DIATRIZOATE SOLN 30ML PO ONE (17:45)
[2022-07-13] MEDS ORDERED: DIATR MEGLU/DIATRIZOATE SOLN 30ML ONE (17:50)
[2022-07-13 18:46] VITALS: BP 112/75
== END 2022-07-13 23:50 | disposition home or self-care (01) ==
LOC: ER 16:00
DX: Z43.1 Encounter for attention to gastrostomy (principal)
CPT/HCPCS: 74018; 99284; Q9963

== ENCOUNTER 2022-07-16 05:51 | Emergency (ER) | payer MEDICAID, OTHER ==
[~2022-07-16] VITALS: Ht 182.9 cm; Wt 70.0 kg
[2022-07-16 08:12] LABS: BASOPHILS % 0.7 % (0.0-2.0); HEMATOCRIT. 36.2 % (42.0-52.0); HEMOGLOBIN. 11.5 g/dL (14.0-18.0); LYMPHOCYTES % 38.8 % (20.0-50.0); MEAN CORPUSCULAR HEMOGLOBIN 24.5 pg (28.0-32.0); MEAN PLATELET VOLUME 8.2 fl (7.4-10.4); MONOCYTES % 9.4 % (2.0-8.0); NEUTROPHILS % 49.1 % (40.0-76.0); PLATELET 348 x1000/uL (130-400); RED BLOOD CELL COUNT 4.71 mill/uL (4.7-6.1); RED CELL DISTRIBUTION WIDTH 16.1 % (11.6-14.6)
[2022-07-16 08:20] LABS: CHLORIDE 104 mEq/L (98-107)
[2022-07-16 08:21] LABS: INR 1.1; PROTHROMBIN TIME 11.6 sec (9.6-11.0)
[2022-07-16] MEDS ORDERED: LIDOCAINE HCL 2% JELLY 5ML ONE (11:41)
[2022-07-16] MEDS ORDERED: LIDOCAINE HCL/PF 1% 10 MG/ML 5ML VIAL ONE (11:42)
[2022-07-16] MEDS ORDERED: IOHEXOL-300 50 ML BOTTLE IV ONE (11:42)
[2022-07-16 13:20] VITALS: BP 116/76
== END 2022-07-16 17:32 | disposition home or self-care (01) ==
LOC: ER 05:51
DX: K94.29 Other complications of gastrostomy (principal); G40.909 Epilepsy, unspecified, not intractable, without status epilepticus; I10 Essential (primary) hypertension; Z88.3 Allergy status to other anti-infective agents; Z93.0 Tracheostomy status; Z79.82 Long term (current) use of aspirin; Z20.822 Contact with and (suspected) exposure to COVID-19; Y83.3 Surgical operation with formation of external stoma as the cause of abnormal reaction of the patient, or of later complication, without mention of misadventure at the time of the procedure; Y92.018 Other place in single-family (private) house as the place of occurrence of the external cause
CPT/HCPCS: 36415; 36598; 49450; 80053; 85025; 85610; 87426; 99284; J3490; Q9967; Z7610

== ENCOUNTER 2022-12-02 08:43 | Inpatient (IN) | payer MEDICAID, OTHER ==
[~2022-12-02] VITALS: Ht 180.3 cm; Wt 57.2 kg
[2022-12-02] MEDS ORDERED: SODIUM CHLORIDE 0.9% 1,000 ML IV ONE (22:00)
[2022-12-02] MEDS: ACETAMINOPHEN 650MG/20.3ML UDC PO NR (23:05)
[2022-12-02] MEDS ORDERED: CEFTRIAXONE 1GM PREMIX 50 ML IV ONE (23:30)
[2022-12-02] MEDS ORDERED: SODIUM CHLORIDE 0.9% 1000ML BAG (SEPSIS BOLUS) IV ONE (23:30)
[2022-12-02 23:49] LABS: HEMOGLOBIN. 10.7 g/dL (14.0-18.0); MEAN CORPUSCULAR HEMOGLOBIN 25.6 pg (28.0-32.0); MEAN CORPUSCULAR VOLUME 78.7 fL (80.0-94.0); MEAN PLATELET VOLUME 8.9 fl (7.4-10.4); PLATELET 229 x1000/uL (130-400); RED BLOOD CELL COUNT 4.19 mill/uL (4.7-6.1); RED CELL DISTRIBUTION WIDTH 15.9 % (11.6-14.6)
[2022-12-02 23:52] LABS: CHLORIDE 109 mEq/L (98-107); INR 1.4; PROTHROMBIN TIME 14.3 sec (9.6-11.0)
[2022-12-03] MEDS: ACETAMINOPHEN 650MG/20.3ML UDC PO NR (00:57)
[2022-12-03] MEDS ORDERED: MEROPENEM 1,000 MG in SODIUM CHLORIDE 0.9% 100 ML IV ONE (01:15)
[2022-12-03 02:10] LABS: PLATELET ESTIMATE NORMAL
[2022-12-03] MEDS ORDERED: ACETAMINOPHEN 650MG/20.3ML UDC GT ONE (04:00)
[2022-12-03] MEDS ORDERED: ONDANSETRON HCL 4MG/2ML INJ IV PRN (10:00)
[2022-12-03] MEDS ORDERED: IPRATROPIUM/ALBUTEROL 0.5-3(2.5)MG/3ML NEB HHN PRN (10:00)
[2022-12-03 13:00] VITALS: BP 110/73
[2022-12-03] MEDS ORDERED: MORPHINE SULFATE 2 MG/ML CPJ (NOT FOR IM USE) IV PRN (13:30)
[2022-12-03 14:00] VITALS: BP_SYST 107; BP_SYST 110; BP_DIAS 60; BP_DIAS 76
[2022-12-03] MEDS ORDERED: BACLOFEN 10MG TABLET PO SCH (14:00)
[2022-12-03] MEDS ORDERED: NALOXONE HCL 0.4MG/ML VIAL IV PRN (14:00)
[2022-12-03] MEDS: ACETAMINOPHEN 650MG/20.3ML UDC GT PRN ×2 (14:06→22:19)
[2022-12-03] MEDS: LEVETIRACETAM 500MG TABLET PO SCH ×2 (14:08→19:14)
[2022-12-03] MEDS: METOPROLOL TARTRATE 25MG TABLET PO SCH ×2 (14:08→19:13)
[2022-12-03] MEDS: BACLOFEN 10MG TABLET PO SCH ×2 (14:09→17:00)
[2022-12-03] MEDS: ASPIRIN 81MG EC TABLET PO SCH (14:09)
[2022-12-03] MEDS: SODIUM CHLORIDE 0.45% 1,000 ML IV SCH (14:09)
[2022-12-03 16:00] VITALS: BP 112/74
[2022-12-03 16:01] LABS: HEMATOCRIT. 33.3 % (42.0-52.0); HEMOGLOBIN. 10.8 g/dL (14.0-18.0); MEAN CORPUSCULAR HEMOGLOBIN 25.5 pg (28.0-32.0); MEAN CORPUSCULAR VOLUME 78.3 fL (80.0-94.0); MEAN PLATELET VOLUME 9.1 fl (7.4-10.4); PLATELET 191 x1000/uL (130-400); RED BLOOD CELL COUNT 4.25 mill/uL (4.7-6.1); RED CELL DISTRIBUTION WIDTH 16.1 % (11.6-14.6)
[2022-12-03 16:33] LABS: CREATINE KINASE MB FRACTION 4.8 ng/mL (0.5-3.6)
[2022-12-03 18:00] VITALS: BP 102/76
[2022-12-03 18:38] LABS: PLATELET ESTIMATE NORMAL
[2022-12-03] MEDS: FAMOTIDINE 20MG TABLET PO SCH (19:13)
[2022-12-03] MEDS: MEROPENEM 500 MG in SODIUM CHLORIDE 0.9% 50 ML IV SCH ×2 (19:13→22:19)
[2022-12-03] MEDS: METOCLOPRAMIDE HCL 10MG TABLET PO SCH (19:14)
[2022-12-03 20:00] VITALS: BP 113/77
[2022-12-03 22:00] VITALS: BP 102/76
[2022-12-04] VITALS (12 sets, daily range): BP systolic 108–134; BP diastolic 67–79
[2022-12-04] MEDS: SODIUM CHLORIDE 0.45% 1,000 ML IV SCH ×3 (02:08→10:22)
[2022-12-04] MEDS: MEROPENEM 500 MG in SODIUM CHLORIDE 0.9% 50 ML IV SCH (05:37)
[2022-12-04] MEDS: ACETAMINOPHEN 650MG/20.3ML UDC GT PRN (05:46)
[2022-12-04] MEDS ORDERED: DIGOXIN 500MCG/2ML AMP IV NR (06:45)
[2022-12-04 07:12] LABS: BASOPHILS % 0.1 % (0.0-2.0); EOSINOPHILS % 0.1 % (0.0-5.0); HEMATOCRIT. 25.8 % (42.0-52.0); HEMOGLOBIN. 8.2 g/dL (14.0-18.0); LYMPHOCYTES % 7.7 % (20.0-50.0); MEAN CORPUSCULAR HEMOGLOBIN 25.8 pg (28.0-32.0); MEAN PLATELET VOLUME 9.5 fl (7.4-10.4); NEUTROPHILS % 89.1 % (40.0-76.0); PLATELET 125 x1000/uL (130-400); RED BLOOD CELL COUNT 3.19 mill/uL (4.7-6.1)
[2022-12-04] MEDS: ASPIRIN 81MG EC TABLET PO SCH (08:29)
[2022-12-04] MEDS: METOPROLOL TARTRATE 25MG TABLET PO SCH ×2 (08:30→17:18)
[2022-12-04] MEDS: LEVETIRACETAM 500MG TABLET PO SCH ×2 (08:30→17:17)
[2022-12-04] MEDS: BACLOFEN 10MG TABLET PO SCH ×3 (08:31→17:18)
[2022-12-04] MEDS: FAMOTIDINE 20MG TABLET PO SCH ×2 (10:22→17:18)
[2022-12-04] MEDS: METOCLOPRAMIDE HCL 10MG TABLET PO SCH ×3 (10:25→17:17)
[2022-12-04] MEDS ORDERED: METOPROLOL TARTRATE 25MG TABLET PO NR (11:15)
[2022-12-04 12:02] LABS: CHLORIDE 111 mEq/L (98-107)
[2022-12-04] MEDS: MEROPENEM 1000MG in NORMAL SALINE 100ML IV SCH ×2 (12:58→21:27)
[2022-12-04] MEDS ORDERED: LACTULOSE 20G/30ML UDC PO PRN (13:15)
[2022-12-05] VITALS (14 sets, daily range): BP systolic 98–147; BP diastolic 64–98
[2022-12-05] MEDS: SODIUM CHLORIDE 0.45% 1,000 ML IV SCH ×2 (02:08→18:24)
[2022-12-05] MEDS: MEROPENEM 1000MG in NORMAL SALINE 100ML IV SCH ×3 (05:05→21:43)
[2022-12-05] MEDS: FAMOTIDINE 20MG TABLET PO SCH ×2 (09:05→18:22)
[2022-12-05] MEDS: METOPROLOL TARTRATE 25MG TABLET PO SCH ×2 (09:05→18:23)
[2022-12-05] MEDS: LEVETIRACETAM 500MG TABLET PO SCH ×2 (09:05→18:21)
[2022-12-05] MEDS: ASPIRIN 81MG EC TABLET PO SCH (09:06)
[2022-12-05] MEDS: METOCLOPRAMIDE HCL 10MG TABLET PO SCH ×3 (09:06→18:22)
[2022-12-05] MEDS: BACLOFEN 10MG TABLET PO SCH ×3 (09:27→18:23)
[2022-12-05] MEDS ORDERED: LIDOCAINE HCL 1% 30ML VIAL (10MG/ML) ONE (13:00)
[2022-12-06] VITALS (11 sets, daily range): BP systolic 96–130; BP diastolic 73–98
[2022-12-06] MEDS: SODIUM CHLORIDE 0.45% 1,000 ML IV SCH ×2 (04:08→11:30)
[2022-12-06] MEDS: MEROPENEM 1000MG in NORMAL SALINE 100ML IV SCH ×2 (05:40→14:38)
[2022-12-06 07:40] LABS: HEMATOCRIT. 30.5 % (42.0-52.0); HEMOGLOBIN. 9.9 g/dL (14.0-18.0); MEAN CORPUSCULAR HEMOGLOBIN 25.5 pg (28.0-32.0); MEAN CORPUSCULAR VOLUME 78.8 fL (80.0-94.0); MEAN PLATELET VOLUME 9.7 fl (7.4-10.4); PLATELET 196 x1000/uL (130-400); RED BLOOD CELL COUNT 3.87 mill/uL (4.7-6.1); RED CELL DISTRIBUTION WIDTH 15.7 % (11.6-14.6)
[2022-12-06 08:36] LABS: CHLORIDE 107 mEq/L (98-107)
[2022-12-06] MEDS: FAMOTIDINE 20MG TABLET PO SCH ×2 (09:21→16:45)
[2022-12-06] MEDS: LEVETIRACETAM 500MG TABLET PO SCH ×2 (09:21→16:46)
[2022-12-06] MEDS: BACLOFEN 10MG TABLET PO SCH ×3 (09:21→16:46)
[2022-12-06] MEDS: ASPIRIN 81MG EC TABLET PO SCH (09:21)
[2022-12-06] MEDS: METOPROLOL TARTRATE 25MG TABLET PO SCH ×2 (09:22→16:45)
[2022-12-06] MEDS: METOCLOPRAMIDE HCL 10MG TABLET PO SCH ×3 (09:24→16:46)
[2022-12-06] MEDS ORDERED: ENOXAPARIN 40MG/0.4ML SYR SUBCUT SCH (10:00)
[2022-12-06 16:07] LABS: PLATELET ESTIMATE NORMAL
== END 2022-12-06 19:57 | disposition home or self-care (01) | DRG 720 ==
LOC: ER 08:56 → EDBEDREQ 12-03 01:03 → MICUSO 12-03 01:05 → 5EST 12-03 12:01
PROVIDERS: ADMIT Internal Medicine; ATTEND Internal Medicine
PROC: B54MZZA Ultrasonography of Right Upper Extremity Veins, Guidance (ICD-10-PCS; principal; 2022-12-05)
PROC: 05HY33Z Insertion of Infusion Device into Upper Vein, Percutaneous Approach (ICD-10-PCS; 2022-12-05)
DX: A41.9 Sepsis, unspecified organism (principal); Z93.0 Tracheostomy status; N39.0 Urinary tract infection, site not specified; G40.909 Epilepsy, unspecified, not intractable, without status epilepticus; N20.0 Calculus of kidney; Z87.442 Personal history of urinary calculi; Z87.820 Personal history of traumatic brain injury; Z88.1 Allergy status to other antibiotic agents; Z98.2 Presence of cerebrospinal fluid drainage device; Z93.6 Other artificial openings of urinary tract status
CPT/HCPCS: 36415; 36573; 71045; 74176; 76770; 80048; 80053; 82553; 82962; 83605; 84145; 84484; 85025; 87077; 87186; 99285; C1725; J0696; J1160; J2185; J2270; J2405; J3490; J7030; J7050; J8597